=== PATIENT | male | born 1960 | race Caucasian/White ===

== ENCOUNTER 2024-11-06 22:30 | Inpatient (IN) | payer BC, SELFPAY ==
[2024-11-06 17:14] VITALS: BP 149/89
[2024-11-06 17:40] LABS: Hematocrit 38.3 % (39.0-52.0); Hemoglobin 12.6 g/dL (13.0-18.0); Mean Corp Hgb Conc. 32.9 g/dL (33.0-37.0); Mean Corpuscular Volume 85.1 fL (80.0-94.0); Nucleated Red Blood Cells % 0 % (-); Platelet Count 416 10^3/uL (130-400); Red Cell Dist. Width 13.4 % (11.5-14.5)
[2024-11-06 18:02] LABS: ALT (SGPT) 118 U/L (0-50); AST (SGOT) 39 U/L (17-59); Albumin 3.9 g/dl (3.5-5.0); Alkaline Phosphatase 329 U/L (38-126); Blood Urea Nitrogen 13 mg/dl (9-20); Calcium 9.6 mg/dl (8.4-10.2); Carbon Dioxide 24 mmol/L (22-30); Glucose 117 mg/dl (70-99); Total Protein 7.4 g/dl (6.3-8.2); eGFR > 60.00
[2024-11-06 18:17] LABS: Chloride 106 mmol/L (98-107); Potassium 4.4 mmol/L (3.5-5.1); Sodium 138 mmol/L (135-145)
[2024-11-06 19:47] VITALS: BP 143/87
[2024-11-06 20:00] VITALS: BP 157/92
--- NOTE | 2024-11-06 20:00 | ED.GENMED ---
History of Present Illness
General
Chief Complaint: Pneumonia Symptoms
Source: patient and spouse
Exam Limitations: none
Time Seen by Provider: 11/06/24 19:38
Nursing documentation reviewed up to this point in time: agreed with
History of Present Illness
History of Present Illness:
Patient states he was seen at 10 days ago. Diagnose with flu. He was called the following day and told he also had pneumonia. He was placed on [id number] bid, last dose is scheduled for tonight. He returned to on Monday because he
was not feeling any better. He was given rx for ceftin to take along with the doxycycline. He returned to today because he is still having fevers. He was then referred to ED. Reports JI, fatigue.
Past History
Past History
ED Past Medical History: HTN, Hypercholesterolemia and Hypothyroidism
Social History
Tobacco: Non-smoker
Alcohol: None
Drug: None
Review of Systems
Review of Systems
Allergies reviewed?: Yes
All Other Systems: ROS reviewed and negative except as documented in HPI and ROS
Constitutional: Reports fever and fatigue
EENT: Reports no symptoms
Respiratory: Reports cough and trouble breathing
Cardiac: Reports no symptoms
ABD/GI: Reports no symptoms
: Reports no symptoms
Musculoskeletal: Reports no symptoms
Skin: Reports no symptoms
Neurological: Reports weakness
Psychiatric: Reports no symptoms
Phy Exam
General Physical Exam
General Presentation: moderate distress
General age: appears stated age
General Skin: warm and dry
General Habitus: normal
General Mental: alert
Cardiovascular Exam
Cardiovascular Exam: regular rate/rhythm
Pulmonary Exam
Pulmonary Exam: decreased breath sounds
Musculoskeletal Exam
Musculoskeletal Exam: full ROM and neuro vasc intact
Skin Exam
Skin Exam: normal color, warm/dry and no rash
Psychiatric Exam
Psychiatric Exam: normal mood/affect
Course
Orders/Labs/Results
Orders:
Orders
11/06/24 17:32
Complete Blood Count/With Diff Urgent
Comprehensive Metabolic Panel Urgent
11/06/24 17:34
Blood Culture Urgent
DEMI Source: Blood/Venous
Specimen Description:
11/06/24 19:59
CR Chest - 2 Views Urgent
Comment:
Reason For Exam: SOB
11/06/24 20:04
Acetaminophen [Tylenol] 1,000 mg PO NOW STA
11/06/24 20:05
0.9% Sodium Chloride 1000 ml [Nss] 1,000 ml IV BOLUS
11/06/24 20:13
Lactic Acid Urgent
Blood Culture Urgent
DEMI Source: Blood/Venous
Specimen Description:
11/06/24 21:17
Cefepime HCl [Maxipime] 2,000 mg IV NOW STA
11/06/24 21:20
Cefepime HCl [Maxipime] 2,000 mg IV NOW STA
Vancomycin [Vancocin] 2,000 mg 0.9% Sodium Chloride 500 ml [Nss] 500 ml IV NOW
11/06/24 21:30
Sterile Water [Sterile Water For Injection] 10 ml .ROUTE .[facility]
Vancomycin [Vancocin] 2,000 mg 0.9% Sodium Chloride 500 ml [Nss] 500 ml IV NOW
11/06/24 22:04
Admit/Transfer Patient As Directed
Co-Sign Provider:
Level of Care: Inpatient admission
Assign to:: Telemetry
Physician / Group: Jose Maria Palmer
Diagnosis: sepsis, pneumonia, transaminitis
Reason for Telemetry: Arrhythmia
Date to Stop Telemetry: 11/09/24
Time to Stop Telemetry: 11:00
Reason for Hospitalization: sepsis, pneumonia, transaminitis
Expected length of stay greater than two midnights?: Yes
ELOS- Estimated Length of Stay in days: 3
I certify the patient meets the requirements for IP care: Yes
PRN Pain Medication Management As Directed
May give lesser potent ordered pain med per pt: Yes
preference::
Protocol:: Medication orders for pain may be administered in a
manner that supports deferring to patient preference
when the pt is:
- Requesting an ordered lesser potent pain medication.
Least to most potent pain medications are defined
as: acetaminophen < NSAID < tramadol < opioids
(morphine, oxycodone, hydromorphone).
- Requesting a lesser dose of the same medication IF
ORDERED.
- Requesting a less intrusive route of administration
if both routes are prescribed by the provider (PO <
IV).
11/06/24 22:05
Code Status As Directed
Resuscitation Status: Full Code
11/06/24 22:08
MRSA Screen Routine
DEMI Source: Nose
Specimen Description:
Vancomycin MRSA PCR Screen Routine
DEMI Source: N
Specimen Description:
11/07/24 00:20
0.9% Sodium Chloride 1000 ml [Nss] 1,000 ml IV 100 mls/hr
Acetaminophen [Tylenol] 650 mg PO Q4HPRN PRN
Cefepime HCl [Maxipime] 1,000 mg IV Q8H
11/07/24 00:20
Respiratory Culture/Gram Stain Urgent
DEMI Source: Sputum
Specimen Description:
Activity As Directed
Activity Level: Out of Bed-Early Mobility
Intake/ Output As Directed
Frequency: Per unit guidelines
Vital Signs As Directed
Frequency: Per unit guidelines
Weight As Directed
Frequency: Once
Comment: on admission
O2 Therapy [RESP] Routine
Titrate/Wean O2 to maintain O2 sat greater than (%): 93
Special Instructions: Wean as tolerated
Rx Incentive Spirometry [RESP] Routine
Frequency: q1h while awake
DX Deep Vein Thrombosis Video Routine
11/07/24 00:52
Legionella Urinary Antigen Routine
DEMI Source: Urine
Specimen Description:
Strep pneumoniae Antigen Routine
DEMI Source: Urine
Specimen Description:
11/07/24 Breakfast
Regular
At Your Request: Full Participation
Does patient need a safe tray?: No
Reason for opting out of Medical Equipment Repair Technician order writing: Provider Decision
11/07/24 07:36
Complete Blood Count/No Diff IN AM
Comprehensive Metabolic Panel IN AM
11/07/24 18:00
Enoxaparin Sodium [Lovenox] 40 mg SC QPM
11/09/24 11:00
DC Protocol for Telemetry ONCE
Abnormal Lab Results
11/06/24
17:32
WBC 14.6 H 10^3/uL
(4.8-10.8)
RBC 4.50 L 10^6/uL
(4.70-6.10)
Hgb 12.6 L g/dL
(13.0-18.0)
Hct 38.3 L %
(39.0-52.0)
MCHC 32.9 L g/dL
(33.0-37.0)
Plt Count 416 H 10^3/uL
(130-400)
Abs Immat Gran (auto) 0.1 H 10^3/uL
(0-0.05)
Absolute Neuts (auto) 11.6 H 10^3/uL
(1.4-6.5)
Absolute Monos (auto) 1.0 H 10^3/uL
(0.1-0.6)
Neutrophils % 79.3 H %
(42.2-75.2)
Lymphocytes % 12.3 L %
(20.5-51.1)
Glucose 117 H mg/dl
(70-99)
ALT 118 H U/L
(0-50)
Alkaline Phosphatase 329 H U/L
(38-126)
11/06/24 17:32
11/06/24 17:32
Vital Signs
Initial and Last Documented VS:
Initial Vital Signs
Temp Pulse Resp BP Pulse Ox
98.6 F 107 20 149/89 98
11/06/24 17:14 11/06/24 17:14 11/06/24 17:14 11/06/24 17:14 11/06/24 17:14
Last Documented Vital Signs
Temp Pulse Resp BP Pulse Ox
101.0 F H 101 26 150/86 93
11/07/24 17:04 11/07/24 15:01 11/07/24 15:01 11/07/24 15:01 11/07/24 15:01
*Radiology
Radiology exam reviewed: radiology read reviewed
*Pulse Oximetry
SaO2: 98
Oxygen Mode of Delivery: Room air
Patient hypoxic: no
*Critical Care Note
Total Time (30-74mins, 75-104mins- exclusive of procedures): Not Applicable
Update Note
Update Note:
Patient to ED wtih complaint of persistent fevers. Diagnosed with flu and pnuemonia 10 days ago. treated with tamiflu and placed on doxycycline without improvement. Ceftin added4 days ago due to persistent fevers and repeat xray without
improvement. Today reports increasing SOB, fevers >101. Labs reviewed. WBC 15 with left shift. Lactic normal. Temp of 102 in ED. CXR atelectasis vs pneumonia. Case discussed with Dr. Roe. Will place on Vancomycin and cefepime, admit to
hospitalist for pneumonia, persistent fevers, JI.
ED Attending Note
-
Portions of this chart may have been created with voice recognition software.� Occasional wrong word or��sound alike� substitutions may have occurred due to the inherent limitations of voice recognition software.
Discharge Plan
Departure
Patient Disposition: Admit
Date of Disposition: 11/06/24
Time of Disposition: 21:22
Presentation/result/management discussed w/ accepting MD/DO: Hospitalist
Patient with high blood pressure during this ER visit?: No
Condition: Fair
Covid-19: Not Applicable
Discharge Problem:
Pneumonia, Fever and chills, JI (dyspnea on exertion)
Interventions
Interventions:
*Risk Screen - Suicide Last Done: 11/07/24 00:23
*General Assessment Last Done: 11/06/24 17:14
*Neglect/Abuse Screening Last Done: 11/06/24 17:14
*ED- Fall Risk Assessment Last Done: 11/06/24 17:14
*ED COVID-19 Vaccine History Last Done: 11/06/24 17:14
*Nursing Disposition Last Done: 11/07/24 00:10
ED- Cardiac Assessment Last Done: 11/06/24 21:00
ED- Pulmonary Assessment Last Done: 11/06/24 21:00
Discharge Date and Time
Discharge Date/Time: 11/07/24 00:10
[2024-11-06 20:05] VITALS: BMI 32.6
[2024-11-06] MEDS: TYLENOL 1000 MG PO (20:14)
[2024-11-06] MEDS: NSS 1000 IV (20:18)
[2024-11-06] MEDS: MAXIPIME 2000 MG IV (21:32)
--- NOTE | 2024-11-06 21:40 | HPS.HSE ---
Family Physician
<DENNIS Romeo - Last Filed: 11/07/24 14:04>
-
Family Physician: Yocasta Santana, DO
Chief Complaint
<DENNIS Romeo - Last Filed: 11/07/24 14:04>
-
persistent fevers
History of Present Illness
Patient is a 63-year-old male with past medical history significant for hypertension, hypercholesterolemia and hypothyroidism who presented to [facility] ED for evaluation of persistent fevers and difficulty breathing. Patient reports that he has had
persistent fevers for last 10 days associated with difficulty breathing. He states he went to [facility] x3 and was treated for pneumonia with 2 antibiotics (doxycycline and Ceftin) and has not improved. Urgent care recommended ED
visit for evaluation and treatment when he returned today without improvement. Patient denies cough, chest pain, nausea, vomiting or changes with bowel or bladder.
Medical History
<DENNIS Romeo - Last Filed: 11/07/24 14:04>
Past Medical History
Past Medical History: Reports Other
Additional Past Medical History:
hypertension
hypercholesterolemia
hypothyroidism
Hx Prostate Cancer
Past Surgical History: Reports Other
Additional Past Surgical History:
prostatectomy 04/2024
Social History
Tobacco: Non-smoker
Alcohol: Occasional
Drug: None
Personal:
Living: With Family
Employment: Employed
Family History
Family History: Not pertinent
Allergies / Home Medications
Allergies reflects when Allergies were last updated in [employer].
Home Medications with original date entered in [employer]
Allergy/Medication List:
Allergies
Allergy/AdvReac Type Severity Reaction Status Date / Time
No Known Allergies Allergy Verified 11/06/24 21:29
Home Medications
acetaminophen 500 mg tablet (Tylenol Extra Strength) 1,000 mg PO DAILYPRN PRN mild pain/fever 11/06/24
amlodipine 5 mg tablet 5 mg PO HS 11/06/24
cefuroxime axetil 250 mg tablet 250 mg PO BID 11/06/24
doxycycline hyclate 100 mg capsule 100 mg PO BID 11/06/24
ibuprofen 200 mg tablet 600 mg PO Q6HPRN PRN mild pain/fever 11/06/24
levothyroxine 50 mcg tablet 50 mcg PO DAILY 11/06/24
lisinopril 10 mg tablet 10 mg PO HS 11/06/24
tadalafil 5 mg tablet 5 mg PO DAILY 11/06/24
<DENNIS Seth - Last Filed: 11/07/24 01:11>
Past Medical History
Past Medical History: Reports Hypercholesterolemia
Review of Systems
<DENNIS Romeo - Last Filed: 11/07/24 14:04>
-
History Source: Patient
Constitutional: Reports Fever, Fatigue and Chills
Respiratory: Reports Trouble Breathing (dyspnea )
Physical Exam
<DENNIS Romeo - Last Filed: 11/07/24 14:04>
Vital Signs
Vital Signs
Temp Pulse Resp BP Pulse Ox
100 F 107 20 157/92 96
11/06/24 21:26 11/06/24 17:14 11/06/24 17:14 11/06/24 20:00 11/06/24 20:26
Physical Exam
General: Well Developed, Well Nourished and No Apparent Distress
HEENT: NormoCephalic, Moist mucous membranes and Atraumatic
Respiratory: Clear and Non Labored Respirations
Cardiac: S1/S2 and Regular Rhythm
GI: Soft, Non Tender, Non Distended and Normal Bowel Sounds
Rectal: Deferred by Provider
Genito-urinary: Deferred by me
Musculoskeletal: No Clubbing, No Cyanosis and No Edema
Skin: Warm and IV/Catheter Site
Neuro: Awake, AO x 3 and Nonfocal/grossly intact
Psych: Calm
Laboratory Results
<DENNIS Romeo - Last Filed: 11/07/24 14:04>
-
11/06/24 17:32
11/06/24 17:32
Laboratory Results
Lactic Acid 1.4 mmol/L (0.7-2.0) 11/06/24 20:13
Total Bilirubin 1.0 mg/dl (0.2-1.3) 11/06/24 17:32
AST 39 U/L (17-59) 11/06/24 17:32
ALT 118 U/L (0-50) H 11/06/24 17:32
Alkaline Phosphatase 329 U/L (38-126) H 11/06/24 17:32
Data Reviewed
<DENNIS Romeo - Last Filed: 11/07/24 14:04>
-
Diagnostic Radiology: Report Reviewed by me (CXR: Mild bibasilar opacities which are favored to represent atelectasis, however pneumonia cannot be excluded.)
Lab Data: Labs Reviewed by me (WBC 14.6, Neut 79.3, lactic 1.4, ALT 118, Alk Phos 329)
Impression/Plan
<DENNIS Romeo - Last Filed: 11/07/24 14:04>
-
IMPRESSION/PLAN:
#sepsis likely 2/2 pneumonia
WBC 14.6, Neut 79.3, lactic 1.4
CXR: Mild bibasilar opacities which are favored to represent atelectasis, however pneumonia cannot be excluded.
Blood Cx: pending
- Admit to telemetry
- MRSA screen pending
- IV Vanco and Cefepime for now
- IV NSS 100cc/hr
- supportive care
#transaminitis
ALT 118, Alk Phos 329
- trend LFTs
#hypertension
#hypercholesterolemia
#hypothyroidism
#Hx Prostate Cancer
*med rec not completed at time of admission*
Code status: full code
DVT Prophylaxis: lovenox sq
--- NOTE | 2024-11-06 21:54 | W.PN.UPDATE ---
Update Note
Progress Note Update
This note serves as an addendum to the H&P by intercell connector placer WILLY Loreta Proctor
HPI
63M non smoker HX HTN, Hypothyroid seen at ER:
- about 10 days ago OP Dx of flu and POS CXR for PNA following day, treating with PO doxycycline 100mg bid
- last dose of PO Doxy is scheduled for tonight.
- He returned to on Monday because he was not feeling any better., thus was given rx for ceftin to take along with the doxycycline.
- He returned to today because he is still having fevers.
- He was then referred to ED.
ROS:
Reports JI, fatigue
Vital Signs
Temp Pulse Resp BP Pulse Ox
100 F 107 20 157/92 96
11/06/24 21:26 11/06/24 17:14 11/06/24 17:14 11/06/24 20:00 11/06/24 20:26
PE
Gen: moderate distress, non toxic looking
Lungs: symmetric AE but decresed AE
Cor: RRR , no mumur
Abdomen: soft benign exam
[place] TIER: AAO3 , grossly normal
MS: no edema
Psych: normal mood/affect
Relevant data
Labs
11/06/24
17:32
WBC 14.6 H
Hgb 12.6 L
Plt Count 416 H
Creatinine 0.8
eGFR > 60.00
AST 39
ALT 118 H
Alkaline Phosphatase 329 H
BCx sent
CXR
Mild bibasilar opacities which are favored to represent atelectasis, however pneumonia cannot be excluded.
ASSESSMENT & PLAN
Pending Rx reconciliation
Sepsis due to PNA pw increasing SOB, fevers >102 in ED
Presumed PNA with secondary bacterial infection
- failed OP ABx( PO Doxycycline for 10 days and PO Ceftin last 4 days overlapped with Doxy )
- WBC 15 with left shift. Lactic normal.
- CXR atelectasis vs. bibasilar PNA
- BCx sent
- MRSA screen
- IV NS
- stop PO Doxy and Ceftin
- First dose of IV Vancomycin and cefepime at ER
- cont IV vanco and Zosyn for now pending MRSA screen
- Observe T and WCC
Elevated ALT & AKP: DDX- AILI due to sepsis
- IV NS and Empiric broad spec ABx
- Trend LFts
DVT Px: LMWH
Full code
IP TLM
[2024-11-06] MEDS: VANCOCIN 540 MG IV (22:07)
[2024-11-07] VITALS (7 sets, daily range): BP systolic 127–150; BP diastolic 74–90; BMI 32.4
[2024-11-07] MEDS: NSS 1000 IV ×2 (00:44→12:08)
[2024-11-07] MEDS: NORVASC 5 MG PO ×2 (01:28→21:45)
[2024-11-07] MEDS: ZESTRIL 10 MG PO ×2 (01:29→21:45)
[2024-11-07] MEDS: TYLENOL 650 MG PO ×3 (03:05→23:25)
[2024-11-07] MEDS: STERILE WATER FOR INJECTION 10 ML IV ×3 (05:06→16:49)
[2024-11-07] MEDS: SYNTHROID 50 MCG PO (05:07)
[2024-11-07] MEDS: MAXIPIME 1000 MG IV ×3 (05:07→16:49)
[2024-11-07] MEDS: CALDOLOR 156 MG IV ×2 (05:42→16:56)
[2024-11-07 07:59] LABS: Hematocrit 31.9 % (39.0-52.0); Hemoglobin 10.7 g/dL (13.0-18.0); Mean Corp Hgb Conc. 33.5 g/dL (33.0-37.0); Mean Corpuscular Volume 83.1 fL (80.0-94.0); Platelet Count 336 10^3/uL (130-400); Red Cell Dist. Width 13.3 % (11.5-14.5)
[2024-11-07 08:20] LABS: ALT (SGPT) 76 U/L (0-50); AST (SGOT) 26 U/L (17-59); Albumin 3.2 g/dl (3.5-5.0); Alkaline Phosphatase 272 U/L (38-126); Blood Urea Nitrogen 10 mg/dl (9-20); Calcium 8.5 mg/dl (8.4-10.2); Carbon Dioxide 20 mmol/L (22-30); Chloride 109 mmol/L (98-107); Estimated Creatinine Clearance 116 ml/min; Glucose 127 mg/dl (70-99); Potassium 4.1 mmol/L (3.5-5.1); Sodium 136 mmol/L (135-145); Total Protein 6.2 g/dl (6.3-8.2); eGFR > 60.00
--- NOTE | 2024-11-07 09:05 | PHA.VAN.IN ---
Assessment
- Assessment
Renal Function: Appears similar to baseline
Concomitant Antimicrobials: cefepime
AUC Dosing Plan
- Dosing Variables
Dosing Weight (kg): 102.5
Dosing CrCl (ml/min): 116
Vd coefficient (L/kg): 0.7
- Empiric Dosing
Initial / Loading Dose: 2000mg - 11/06 22:07
Maintenance Regimen: Vanc 1500mg Q12H - give 1g now and start at 1800
Estimated AUC (mcg*h/mL): 447
Estimated Peak (mcg*h/mL): 29.8
Estimated Trough (mcg/ml): 10.4
Estimated Half Life (H): 6.9
- Monitoring
No levels ordered at this time: consider levels in next few days
MRSA Screen: Ordered per protocol
Pharmacokinetics Vancomycin I
- -
Patient Age: 63
Patient Sex: Male
Vancomycin Day #: 1
Indication: Pulmonary/Respiratory
Requesting Provider: Bryan Proctor
Pertinent Antimicrobial Allergies:
NKDA
Height / Weight:
Height 5 ft 10 in
Actual Weight 102.569 kg
Pertinent Past Medical History: BMI ~32
- Vital Signs / Lab Results
Temp Pulse Resp BP Pulse Ox
98.1 F 102 26 127/74 94
11/07/24 07:30 11/07/24 07:30 11/07/24 07:30 11/07/24 07:30 11/07/24 07:30
Lab Results - Hematology
11/06/24 11/07/24
17:32 07:36
WBC 14.6 H 14.1 H
Lab Results - Chemistry
11/06/24 11/07/24
17:32 07:36
BUN 13 10
Creatinine 0.8 0.8
Estimated Creat Clear 116
Albumin 3.9 3.2 L
11/06/24
20:13
Lactic Acid 1.4
Microbiology Results
11/07/24 00:52 Legionella Urinary Antigen - Final
Urine Negative for Legionella pneumophila Serogroup 1 antigen.
A negative result does not rule out the possiblity of
Legionella infection due to other serogroups or species of
Legionella. Clinical correlation is recommended.
11/07/24 00:52 Streptococcus pneumoniae Antigen (M - Final
Urine Negative for Streptococcus pneumoniae antigen.
A negative result does not exclude infection with
Streptococcus pneumoniae. Clinical correlation is
recommended.
[2024-11-07] MEDS: VANCOCIN 200 IV (09:39)
--- NOTE | 2024-11-07 10:37 | W.PN.HOSP.TC ---
Addendum entered and electronically signed by Neda Mcmillan MD 11/07/24 15:10:
I saw and evaluated the patient independently. I reviewed the resident�s note and agree with findings and plan as documented by Dr. May.
GENERAL: well developed, well nourished, male in no apparent distress--sleepy
HEENT: NC/AT--no O2 requirements
HEART: regular rate and rhythm, +S1, +S2
LUNGS : crackles left base
ABDOM: soft, nontender, nondistended, + bowel sounds
EXT: no cyanosis, clubbing, or edema
NEUROLOGIC: grossly intact
SIRS with febrile illness--source not immediately apparent--possible PNA --failed outpt doxy and Tamiflu? vs Ceftin?--consult ID--await cultures--cont cefepime--check Covid/flu/resp panel
Elevated ALT & ALKP--unclear cause--follow
essential HTN--cont amlodipine, lisinopril as able
hypothyroid--cont levothyroxine
DVT Proph--SC heparin
CODE STATUS--Full code
Original Note:
Today's Communication/Plan
-
Continue IV fluids
Continue IV antibiotics
Follow-up blood culture
Influenza PCR
COVID PCR
Assessment / Plan
Assessment / Plan
Mr. Sung is a 63-year-old man with a past medical history of hypertension, hyperlipidemia, hypothyroidism, prostate cancer who to ED wt complaint of persistent fevers. He was diagnosed with flu and pnuemonia 10 days ago. treated with tamiflu and
placed on doxycycline without improvement. Ceftin was added 4 days ago due to persistent fevers and repeat xray without improvement. Today reports increasing SOB, fevers >101. Labs reviewed. WBC 15 with left shift. Lactic normal at 1.4. Temp of
102 in ED. CXR showed atelectasis vs pneumonia. Patient was started on Vancomycin and cefepime, admit to hospitalist for pneumonia, persistent fevers, JI. In the hospital he received IV fluid hydration and infectious disease was consulted. A
respiratory pathogen panel was sent.
#Sepsis due to PNA
#PNA with secondary bacterial infection
- failed OP ABx Doxycycline, Ceftin
- WBC 15 with left shift. Lactic normal, pw increasing SOB, fevers >102 in ED
- CXR atelectasis vs. bibasilar PNA
- BCx sent
- MRSA screen
- IV NSS
- cont IV vanco and Zosyn for now pending MRSA screen
- Observe T and WCC
- COVID antigen influenza PCR
#Elevated ALT & ALKP:
2/2 to sepsis
- IV NS
- Trend LFts
DVT Px:
Subcu heparin
CODE STATUS
Full code
Anticipated Discharge: 24 - 48 hours
Subjective/Interval History
-
Patient was sitting in bed. He reports feeling more comfortable than the past couple days, improving shortness of breath, without fevers. He reported no sick contacts or recent travel, and had no other symptoms such as nausea vomiting or diarrhea.
Date of Service: November 07, 2024
Objective Data
-
Labs:
Laboratory Results
11/07/24
07:36
WBC 14.1 H
Hgb 10.7 L
Hct 31.9 L
Plt Count 336
Sodium 136
Potassium 4.1
Chloride 109 H
Carbon Dioxide 20 L
BUN 10
Creatinine 0.8
Glucose 127 H
Calcium 8.5
Total Bilirubin 1.0
AST 26
ALT 76 H
Alkaline Phosphatase 272 H
Vital Signs:
Vital Signs
Temp Pulse Resp BP Pulse Ox
98.1 F 102 26 127/74 94
11/07/24 07:30 11/07/24 07:30 11/07/24 07:30 11/07/24 07:30 11/07/24 07:30
I&O
11/06/24 11/07/24 11/08/24
06:59 06:59 06:59
Output Total 275 / 275
Balance -275 / -275
Review of Systems
-
History Source: Patient
Constitutional: Reports Fever; Denies Fatigue
EENT: Reports No Symptoms Reported; Denies Sore Throat or Runny Nose
Respiratory: Reports Trouble Breathing
Cardiac: Denies Chest Pain or Palpitations
Abdomen/GI: Denies Abdominal Pain, Nausea, Vomiting or Diarrhea
Genitourinary: Reports No Symptoms; Denies Dysuria or Frequency
Musculoskeletal: Denies No Symptoms
Skin: Reports No Symptoms
Neuro: Reports No Symptoms; Denies Dizzy or Headache
Physical Exam
-
General: Well Developed, Well Nourished and No Apparent Distress
HEENT: Normocephalic and Atraumatic
Respiratory: Rhonchi ( middle to lower left lung combs), Crackles (middle to lower left lung combs) and Non Labored Respirations; Negative Wheezes
Cardiac: Regular Rhythm, S1/S2 and Tachycardic; Negative Murmur or Rub
GI: Soft, Nontender, Nondistended and Normal Bowel Sounds
Musculoskeletal: No Clubbing, No Cyanosis and No Edema
Skin: Warm and Dry; Negative Rash
Neuro: Awake, Alert and Oriented
Psych: Calm
--- NOTE | 2024-11-07 11:03 | CON.ID ---
Consultation
-
Date/Time Consultation Requested: November 07, 2024 0934
Date/Time Consultation Performed: November 07 2024 1100
Requesting Provider: Dr. Leonela May
Performing Provider: Dr. Bee Chambers
Reason for Consultation: SOB and fevers
Chief Complaint / Past History
Chief Complaint
Fevers and weakness
History of Present Illness
63-year-old male with history of hypothyroidism, hypertension who presented to the hospital November 06 due to persistent fevers. His symptoms started approximately 11 days ago when he developed fevers and chills with mild headache, body aches,
rhinorrhea, minimal cough. He went to urgent care and was diagnosed with influenza B. He was prescribed oseltamivir. The next day he received a call that his chest x-ray showed pneumonia and therefore he was given doxycycline to complete 10 days.
In the meantime patient's condition did not improve. Continue to have persistent fever. He was getting more fatigued and weak. He developed shortness of breath with activity. He went back to urgent care on November 03. Ceftin was added to
the doxycycline. Symptoms did not improve and therefore he came to the ER. In the ER temperature one 1.5, white count 14.6. Chest x-ray showed bibasilar opacities due to atelectasis. He was started on vancomycin and cefepime. Patient denies
sinus congestion or pain. No sore throat. No chest pain. No nausea or vomiting or abdominal pain or diarrhea. No urine symptoms, no flank pain. No specific joint pains. Continues to have profound fatigue and myalgias. No recent rash. No ill
contacts. 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 He also has a bird for 2 years. The bird stays in the cage. He does not clean the bird cage. No known
tick exposure.
Past History
Additional Past Medical History:
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
Hypertension
hx prostate ca s/p prostatectomy
Hx testicular ca s/p right orchiectomy
Hx inguinal hernia repari
Allergy History:
No Known Allergies Allergy (Verified 11/06/24 21:29)
Medications Reviewed: Yes
Current Antibiotics:
Vancomycin
Cefepime
Social History
Tobacco: Non-Smoker
Alcohol: None
Drug: None
Personal:
Living: With Family
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
Family History
Family History: Not Pertinent
Review of Systems
Review of Systems
General: Fever, Chills and Change in Appetite
HEENT: Headache; Negative Stiff Neck, Sinus Problems or Pharyngitis
Cardiovascular: Dyspnea; Negative Chest Pain
Respiratory: Negative Cough or Sputum Production
Gasteroenterology: Negative Nausea, Vomiting or Diarrhea
Genital / Urological: Negative Dysuria or Flank Pain
Endocrine: Weakness and Fatigue
Skin / Hair / Nails: Negative Rash
Neurological: Dizziness
All systems: All other systems were reviewed and were negative
Vital Signs
Temp Pulse Resp BP Pulse Ox
98.1 F 102 26 127/74 94
11/07/24 07:30 11/07/24 07:30 11/07/24 07:30 11/07/24 07:30 11/07/24 07:30
Selected Entries
11/06/24
20:05 11/07/24
03:45 11/07/24
05:00
Temp 101.5 F H 100.7 F H 100.9 F H
Physical Exam
Physical Exam
Constitutional: Non-toxic
Head: Other (No frontal or maxillary sinus tenderness)
Eyes: No Conjunctival Hemorrhage and Sclera Anicteric
Pharynx: Benign
Oral: No Ulcers
Cardiovascular: Regular Rate and S1/S2
Pulmonary: Coarse (Bibasilar)
Gastrointestinal: Soft, Non Tender, Non Distended and Normal Bowel Sounds
Extremities: Negative Edema
Musculoskeletal: Negative Joint Swelling, Joint Effusion or Spinal Tenderness
Neurological: AO x 3
Lab / Diagnostic Study Results
11/07/24 07:36
11/07/24 07:36
Abs Immat Gran (auto) 0.1 10^3/uL (0-0.05) H 11/06/24 17:32
Absolute Neuts (auto) 11.6 10^3/uL (1.4-6.5) H 11/06/24 17:32
Absolute Lymphs (auto) 1.8 10^3/uL (1.2-3.4) 11/06/24 17:32
Absolute Monos (auto) 1.0 10^3/uL (0.1-0.6) H 11/06/24 17:32
Absolute Basos (auto) 0.0 10^3/uL (0-0.2) 11/06/24 17:32
Immature Gran % 0.5 % (0-0.5) 11/06/24 17:32
Neutrophils % 79.3 % (42.2-75.2) H 11/06/24 17:32
Lymphocytes % 12.3 % (20.5-51.1) L 11/06/24 17:32
Monocytes % 7.1 % (1.7-9.3) 11/06/24 17:32
Eosinophils % 0.5 % (0-6) 11/06/24 17:32
Basophils % 0.3 % (0-2) 11/06/24 17:32
Lactic Acid 1.4 mmol/L (0.7-2.0) 11/06/24 20:13
Microbiology Results
Micro:
11/06/24 22:08 Nasal Screen MRSA (PCR) - Pending
Nose
11/07/24 00:52 Legionella Urinary Antigen - Final
Urine Negative for Legionella pneumophila Serogroup 1 antigen.
A negative result does not rule out the possiblity of
Legionella infection due to other serogroups or species of
Legionella. Clinical correlation is recommended.
11/07/24 00:52 Streptococcus pneumoniae Antigen (M - Final
Urine Negative for Streptococcus pneumoniae antigen.
A negative result does not exclude infection with
Streptococcus pneumoniae. Clinical correlation is
recommended.
11/06/24 20:13 Blood Culture - Pending
Blood/Venous
11/06/24 17:34 Blood Culture - Pending
Blood/Venous
11/06/24 CXR: Mild bibasilar opacities which are favored to represent atelectasis, however pneumonia cannot be excluded.
Assessment / Plan
# Febrile illness
# Leukocytosis
# Anemia
#Elevated ALT
- Symptoms did not respond to 10 days doxycycline nor 5 days of oseltamivir.
- CXR: atelectasis
- SARS neg
-Blood cx's pending
- Check blood smear for Babesiosis.
- DC Vancomycin.
-Can continue cefepime for now pending blood cx.
- Trend temps and CBC
[2024-11-07 11:41] LABS: COVID-19 Antigen Negative (Negative)
--- NOTE | 2024-11-07 15:09 | CM ---
Patient seen at bedside with physician on . Patient stated that he was sleepy. Patient also stated that he lives with his in a 2 story home. Patient has no DME at home and his PCP is Dr. Santana. Patient uses the [facility] on in
[place]. Patient plan is to return to his home with no needs. Patient now on Cefepime awaiting ID recommendations; watch for possible IV antibiotic needs. Patient has been independent prior to acmission. CM will continue to follow for discharge
planning needs.
Plan; home with no needs vs watch for IV antibiotics
[2024-11-07] MEDS: LOVENOX 40 MG SC (16:51)
[2024-11-08] MEDS: STERILE WATER FOR INJECTION 10 ML IV ×5 (00:11→23:17)
[2024-11-08] MEDS: MAXIPIME 1000 MG IV ×5 (00:11→23:17)
[2024-11-08] MEDS: NSS 1000 IV (00:19)
[2024-11-08 03:29] VITALS: BP 130/81
[2024-11-08] MEDS: TYLENOL 650 MG PO ×2 (03:45→21:31)
[2024-11-08] MEDS: SYNTHROID 50 MCG PO (06:11)
[2024-11-08 07:00] VITALS: BP 135/78
[2024-11-08 07:39] LABS: Hematocrit 31.4 % (39.0-52.0); Hemoglobin 10.6 g/dL (13.0-18.0); Mean Corp Hgb Conc. 33.8 g/dL (33.0-37.0); Mean Corpuscular Volume 83.5 fL (80.0-94.0); Nucleated Red Blood Cells % 0 % (-); Platelet Count 318 10^3/uL (130-400); Red Cell Dist. Width 13.2 % (11.5-14.5)
[2024-11-08 08:07] LABS: ALT (SGPT) 71 U/L (0-50); AST (SGOT) 27 U/L (17-59); Albumin 3.0 g/dl (3.5-5.0); Alkaline Phosphatase 261 U/L (38-126); Blood Urea Nitrogen 11 mg/dl (9-20); Calcium 8.4 mg/dl (8.4-10.2); Carbon Dioxide 23 mmol/L (22-30); Chloride 109 mmol/L (98-107); Estimated Creatinine Clearance 116 ml/min; Glucose 113 mg/dl (70-99); Potassium 4.0 mmol/L (3.5-5.1); Sodium 135 mmol/L (135-145); Total Protein 5.8 g/dl (6.3-8.2); eGFR > 60.00
[2024-11-08] MEDS: NSS IV (09:20)
[2024-11-08 11:00] VITALS: BP 122/82
[2024-11-08] MEDS: OMNIPAQUE 50 ML PO (12:09)
--- NOTE | 2024-11-08 13:06 | W.PN.ID1 ---
Date of Service
Date of Service: November 08, 2024
Today's Communication
TTE
CT c/a/p
Assessment / Plan
# Febrile illness, unclear etiology
# Leukocytosis
# Anemia
#Elevated ALT
- Symptoms did not respond to 10 days doxycycline nor 5 days of oseltamivir (outpatient)
- CXR: atelectasis
- SARS/Flu neg
- Parasite smear x 2 negative
-Blood cx's neg to date.
- Ordered TTE
- Recommend CT C/A/P
- Continue empiric cefepime for now.
- Trend temps and CBC
Chief Complaint
-: Fever
Subjective / Review of Systems
Complains of fatigue. Minimal cough.
Vital Signs / Physical Exam
Vital Signs
Vital Signs
Temp Pulse Resp BP Pulse Ox
100.3 F 110 18 122/82 92
11/08/24 11:00 11/08/24 11:00 11/08/24 11:00 11/08/24 11:00 11/08/24 11:00
Selected Entries
11/07/24
15:01 11/07/24
17:04
Temp 102.3 F H 101.0 F H
Physical Exam
Constitutional: No Acute Distress
Eyes: No Conjunctival Hemorrhage and Sclera Anicteric
Cardiovascular: S1/S2 and Other (tachycardic)
Pulmonary: Coarse (bibase)
Gastrointestinal: Soft, Non Tender, Non Distended and Normal Bowel Sounds
Genito-Urinary: Negative CVA Tenderness
Extremities: Negative Edema
Musculoskeletal: Negative Spinal Tenderness
Skin: Negative Rash
Neurological: AO x 3
Objective Data
Lab Data
Lab Results
11/08/24 06:33
11/08/24 06:33
Estimated Creat Clear 116 ml/min 11/08/24 06:33
Lactic Acid 1.4 mmol/L (0.7-2.0) 11/06/24 20:13
Total Bilirubin 0.8 mg/dl (0.2-1.3) 11/08/24 06:33
AST 27 U/L (17-59) 11/08/24 06:33
ALT 71 U/L (0-50) H 11/08/24 06:33
Alkaline Phosphatase 261 U/L (38-126) H 11/08/24 06:33
Most recent labs reviewed.
Micro Results:
11/08/24 06:33 Blood Parasites Smear - Final
Blood/Venous
11/06/24 22:08 MRSA Screen - Final
Nose No Methicillin Resistant Staphylococcus aureus isolated.
11/06/24 20:13 Blood Culture - Preliminary
Blood/Venous No Growth in 24 hours- Final report to follow
11/06/24 17:34 Blood Culture - Preliminary
Blood/Venous No Growth in 24 hours- Final report to follow
11/06/24 22:08 Nasal Screen MRSA (PCR) - Final
Nose
11/07/24 12:23 Blood Parasites Smear - Final
Blood/Venous
11/07/24 11:11 Influenza Types A & B (SHANEL) - Final
Nasal Swab Negative for Influenza A & B, NAAT
Negative results must be combined with clinical observations
and patient history.
Nucleic Acid Amplification test (NAAT)performed on the
Clone platform.
11/07/24 00:52 Legionella Urinary Antigen - Final
Urine Negative for Legionella pneumophila Serogroup 1 antigen.
A negative result does not rule out the possiblity of
Legionella infection due to other serogroups or species of
Legionella. Clinical correlation is recommended.
11/07/24 00:52 Streptococcus pneumoniae Antigen (M - Final
Urine Negative for Streptococcus pneumoniae antigen.
A negative result does not exclude infection with
Streptococcus pneumoniae. Clinical correlation is
recommended.
11/06/24 CXR: Mild bibasilar opacities which are favored to represent atelectasis, however pneumonia cannot be excluded.
Care Review
Plan reviewed with: Physician (Dr. Mcmillan and team)
--- NOTE | 2024-11-08 13:37 | W.PN.HOSP.TC ---
Addendum entered and electronically signed by Neda Mcmillan MD 11/08/24 16:32:
I saw and evaluated the patient independently. I reviewed the resident�s note and agree with findings and plan as documented by Dr. May.
GENERAL: well developed, well nourished, male in no apparent distress--sleepy/fatigue
HEENT: NC/AT--no O2 requirements
HEART: regular rate and rhythm, +S1, +S2
LUNGS: clear to auscultation bilaterally
ABDOM: soft, nontender, nondistended, + bowel sounds
EXT: no cyanosis, clubbing, or edema
NEUROLOGIC: grossly intact
fever of unknown origin now clearly sepsis from CT scan findings--rim-enhancing fluid collection in the anterior right psoas muscle, Inferiorly this abuts a multiloculated rim-enhancing fluid collection in the right external iliac chain region,
probably abscess formation particularly in the psoas muscle-- Necrotic lymphadenopathy for the findings about the external iliac chain are more likely--apprec ID-- cultures negative to date--cont cefepime--Covid/flu negative--consult surgery and IR
to see if drainable
Elevated ALT & ALKP--related to CT findings?--follow
essential HTN--cont amlodipine, lisinopril as able
hypothyroid--cont levothyroxine
DVT Proph--SC heparin
CODE STATUS--Full code
Original Note:
Today's Communication/Plan
-
Appreciate ID recs
CT chest abdomen pelvis
Echo ordered
Fever of unknown origin workup started
Assessment / Plan
Assessment / Plan
Mr. Sung is a 63-year-old man with a past medical history of hypertension, hyperlipidemia, hypothyroidism, prostate cancer who to ED [facility] complaint of persistent fevers. He was diagnosed with flu and pnuemonia 10 days ago. treated with tamiflu and
placed on doxycycline without improvement. Ceftin was added 4 days ago due to persistent fevers and repeat xray without improvement. Today reports increasing SOB, fevers >101. Labs reviewed. WBC 15 with left shift. Lactic normal at 1.4. Temp of
102 in ED. CXR showed atelectasis vs pneumonia. Patient was started on Vancomycin and cefepime, admit to hospitalist for pneumonia, persistent fevers, JI. In the hospital he received IV fluid hydration and infectious disease was consulted. A
respiratory pathogen panel was sent.
#Sepsis due to PNA
#PNA with secondary bacterial infection
# Fever of unknown origin
Patient not improving on IV antibiotics
Hx of prostate cancer
Hx of positive FIT test
- failed OP ABx Doxycycline, Ceftin
- WBC 15 with left shift. Lactic normal, pw increasing SOB, fevers >102 in ED
- CXR atelectasis vs. bibasilar PNA
- BCx pending
-Patient transition to IV cefepime
- COVID negative influenza negative
- ID consult, appreciate recs
- CT chest abdomen pelvis
- echo
- Fever of unknown origin workup
-Ferritin
- ESR CRP procalcitonin
- TREMAYNE ANCA
- RF
- B12, folate
- PSA
#Elevated ALT & ALKP:
2/2 to sepsis
- IV NS
- Trend LFts
DVT Px:
Subcu heparin
CODE STATUS
Full code
Anticipated Discharge: > 48 hours
Subjective/Interval History
-
Patient was seen at bedside today, he appears more fatigued than yesterday. He reports feeling more fatigued and breaking out in fevers. He has no localized pain anywhere. He told me that before the hospitalization he had a fit test which was
positive and was supposed to do a colonoscopy but was not able to follow-up. Patient also reported having 2 UTIs after prostate cancer resection. Date of Service: November 08, 2024
Objective Data
-
Labs:
Laboratory Results
11/08/24
06:33
WBC 12.4 H
Hgb 10.6 L
Hct 31.4 L
Plt Count 318
Sodium 135
Potassium 4.0
Chloride 109 H
Carbon Dioxide 23
BUN 11
Creatinine 0.8
Glucose 113 H
Calcium 8.4
Total Bilirubin 0.8
AST 27
ALT 71 H
Alkaline Phosphatase 261 H
Vital Signs:
Vital Signs
Temp Pulse Resp BP Pulse Ox
100.3 F 110 18 122/82 92
11/08/24 11:00 11/08/24 11:00 11/08/24 11:00 11/08/24 11:00 11/08/24 11:00
I&O
11/07/24 11/08/24 11/09/24
06:59 06:59 06:59
Intake Total 480 / 480
Output Total 275 / 275 850 / 850
Balance -275 / -275 -370 / -370
Review of Systems
-
History Source: Patient
All other systems: Reviewed and negative
Constitutional: Reports Fever and Fatigue
EENT: Denies Sore Throat or Runny Nose
Respiratory: Reports No Symptoms; Denies Cough, Trouble Breathing or Wheezing
Cardiac: Reports No Symptoms; Denies Chest Pain, Diaphoresis or Palpitations
Abdomen/GI: Reports No Symptoms; Denies Abdominal Pain, Nausea or Vomiting
Genitourinary: Reports No Symptoms; Denies Dysuria
Musculoskeletal: Reports No Symptoms
Skin: Reports No Symptoms; Denies Itching or Rash
Neuro: Reports No Symptoms; Denies Dizzy or Headache
Physical Exam
-
General: Well Developed, Well Nourished, Fever, Chills and Obese
HEENT: Normocephalic and Atraumatic
Respiratory: Clear to Auscultation; Negative Wheezes or Crackles
Cardiac: Regular Rhythm and S1/S2; Negative Murmur or Rub
GI: Soft, Nontender, Nondistended and Normal Bowel Sounds
Musculoskeletal: No Clubbing, No Cyanosis and No Edema
Skin: Warm and Dry; Negative Rash
Neuro: Awake, Alert and Oriented
[2024-11-08 14:16] LABS: C-Reactive Protein 207.80 mg/L (0.0-10.00)
[2024-11-08 14:19] LABS: Procalcitonin 0.28 ng/ml (0.0-0.25)
[2024-11-08 14:37] LABS: Ferritin 743.0 ng/ml (17.9-464.0)
[2024-11-08 15:00] VITALS: BP 139/79
[2024-11-08 15:08] LABS: Folate 10.0 ng/ml (2.76-20); Vitamin B12 190 pg/ml (239-931)
--- NOTE | 2024-11-08 16:32 | CM ---
Patient seen at bedside with physicians on . Patient continues to have fever and pending CT scans per physicians. Watch for home IV antibiotics and VN needs. CM will continue to follow for discharge planning needs.
Plan; home with no needs
[2024-11-08] MEDS: CYANOCOBALAMIN 1000 MCG IM (17:34)
[2024-11-08] MEDS: LOVENOX 40 MG SC (17:35)
[2024-11-08 19:55] VITALS: BP 143/83
[2024-11-08] MEDS: NORVASC 5 MG PO (21:32)
[2024-11-08] MEDS: ZESTRIL 10 MG PO (21:32)
[2024-11-08 23:55] VITALS: BP 133/64
[2024-11-09] VITALS (11 sets, daily range): BP systolic 77–158; BP diastolic 74–97
[2024-11-09] MEDS: MAXIPIME 1000 MG IV ×4 (05:05→23:22)
[2024-11-09] MEDS: STERILE WATER FOR INJECTION 10 ML IV ×4 (05:05→23:22)
[2024-11-09] MEDS: SYNTHROID PO (05:23)
[2024-11-09 07:21] LABS: Hematocrit 32.1 % (39.0-52.0); Hemoglobin 10.8 g/dL (13.0-18.0); Mean Corp Hgb Conc. 33.6 g/dL (33.0-37.0); Mean Corpuscular Volume 83.4 fL (80.0-94.0); Platelet Count 335 10^3/uL (130-400); Red Cell Dist. Width 13.2 % (11.5-14.5)
[2024-11-09 07:35] LABS: ALT (SGPT) 85 U/L (0-50); AST (SGOT) 38 U/L (17-59); Albumin 3.2 g/dl (3.5-5.0); Alkaline Phosphatase 310 U/L (38-126); Blood Urea Nitrogen 10 mg/dl (9-20); Calcium 8.6 mg/dl (8.4-10.2); Carbon Dioxide 25 mmol/L (22-30); Chloride 105 mmol/L (98-107); Estimated Creatinine Clearance 116 ml/min; Glucose 112 mg/dl (70-99); Potassium 3.9 mmol/L (3.5-5.1); Sodium 135 mmol/L (135-145); Total Protein 6.3 g/dl (6.3-8.2); eGFR > 60.00
[2024-11-09] MEDS: CYANOCOBALAMIN 1000 MCG IM (08:50)
--- NOTE | 2024-11-09 11:24 | CON.GS ---
Addendum entered and electronically signed by Evelio De La Torre MD 11/09/24 13:58:
IR attempt unsuccessful. OK for diet. Would treat with IV abx per ID for now. Will follow peripherally.
Addendum entered and electronically signed by Evelio De La Torre MD 11/09/24 11:52:
I saw and examined the patient.
The Shear Operator Helper's note was reviewed and I agree with the note.
Comment: No pain, c/o fever and weakness. Abd exam benign. Negative psoas sign. Given lack of pain I suspect more likely this is necrotic lymphadenopathy, considering hx of testicular CA. No plan for acute surgical intervention. Await IR sampling.
Will follow peripherally.
Original Note:
Consultation
-
Date/Time Consultation Performed: 11/09/24 0958
Medical History
-
Chief Complaint: fevers
History of Present Illness:
Mr Sung is a 63 yo male with h/o testicular cancer s/p right orchiectomy and recent prostatectomy for prostate CA in April who presented for persistent fevers x10 days as an outpatient with recent treatment for pna from an urgent care without
improvement. He notes increased fatigue, malaise and sweats. He notes that he has been so tired he has had difficulty standing. He denies abdominal pain. He denies leg pain. His major complaint currently is a headache.
Past Medical History
Past Medical History: Cancer (prostate, testicular), HTN, Hypercholesterolemia and Hypothyroidism
Past Surgical History: Hernia Repair (inguinal hernia repair) and Urological (prostatectomy 04/2024, right orchiectomy)
Social History
Tobacco: Non-Smoker
Alcohol: Occasional
Personal:
Living: With Family
Family History
Family History: Reviewed & Not Pertinent
Allergies / Home Medications
Allergy/AdvReac Type Severity Reaction Status Date / Time
No Known Allergies Allergy Verified 11/06/24 21:29
�Medication �Instructions �Recorded �Confirmed �Type
acetaminophen 500 mg tablet 1,000 mg PO DAILYPRN PRN mild 11/06/24 11/06/24 History
(Tylenol Extra Strength) pain/fever
amlodipine 5 mg tablet 5 mg PO HS 11/06/24 11/06/24 History
cefuroxime axetil 250 mg tablet 250 mg PO BID 11/06/24 11/06/24 History
doxycycline hyclate 100 mg capsule 100 mg PO BID 11/06/24 11/06/24 History
ibuprofen 200 mg tablet 600 mg PO Q6HPRN PRN mild 11/06/24 11/06/24 History
pain/fever
levothyroxine 50 mcg tablet 50 mcg PO DAILY 11/06/24 11/06/24 History
lisinopril 10 mg tablet 10 mg PO HS 11/06/24 11/06/24 History
tadalafil 5 mg tablet 5 mg PO DAILY 11/06/24 11/06/24 History
Review of Systems
-
History Source: Patient
All other systems: Negative unless noted
A 10 point review of systems was completed, and was negative except as per HPI.
Physical Exam
Vital Signs
Temp Pulse Resp BP Pulse Ox
99.6 F 84 14 133/74 92
11/09/24 08:00 11/09/24 08:00 11/09/24 08:00 11/09/24 08:00 11/09/24 08:00
Body Mass Index (BMI) 32.4
Lab Results
11/09/24 06:52
11/09/24 06:52
WBC 12.5 10^3/uL (4.8-10.8) H 11/09/24 06:52
Hgb 10.8 g/dL (13.0-18.0) L 11/09/24 06:52
Hct 32.1 % (39.0-52.0) L 11/09/24 06:52
Plt Count 335 10^3/uL (130-400) 11/09/24 06:52
Abs Immat Gran (auto) 0.1 10^3/uL (0-0.05) H 11/08/24 06:33
Neutrophils % 77.9 % (42.2-75.2) H 11/08/24 06:33
Physical Exam
General: Well Developed, Comfortable and Fever
HEENT: Normocephalic
Respiratory: Non Labored Respirations
GI: Soft, Non Tender and Non Distended
Musculoskeletal: No Cyanosis, No Edema and Other (movement/ROM intact to BLLE, equal strength)
Skin: Warm and Dry
Neuro: Awake, Alert and AO x 3
Psych: Calm
Data Reviewed
-
CT Scan: Image Personally Visualized and interpreted, Report Reviewed by me, Discussed with Physician and Discussed with Patient
Labs: Labs Reviewed by me, Discussed with Physician and Discussed with Patient
Old Records: Reviewed
Assessment / Plan
-
63 yo male s/p prostatectomy for prostate CA in April presenting with persistent fevers/sepsis with leukocytosis. Imaging yesterday with abscess present in the right psoas muscle with adjacent necrotic lymphadenopathy inferiorly which is likely
the etiology of his fevers. Unclear etiology of abscess although malignancy is quite possible given presence of necrotic lymphadenopathy, possibly secondary to recent surgery as well although this was around 6 months ago.
Plan:
IR drainage of abscess today, orders placed for both cultures and cytology
No plans for surgery if IR drainage successful
Ok to advance diet post procedure
ABX as per ID
Medical management as per primary team
--- NOTE | 2024-11-09 12:52 | W.PN.UPDATE ---
Update Note
Progress Note Update
- Attempted CT guided aspiration/drainage of R pelvic sidewall collection this morning, which unfortunately was unsuccessful
- Small window with close proximity to the external iliac vessels. We were able to navigate an 18g needle posterior these vessels with needle tip apparently within the collection but no fluid able to be aspirated. Tried to pass a wire with
resistance which ended up kinking wire with loss of access. Possibly we were tenting the collection or maybe its necrotic tissue though I think this is unlikely.
- Would continue abx and await surgical input.
--- NOTE | 2024-11-09 14:49 | W.PN.HOSP.TC ---
Addendum entered and electronically signed by Neda Mcmillan MD 11/09/24 16:13:
I saw and evaluated the patient independently. I reviewed the resident�s note and agree with findings and plan as documented by Dr. May.
GENERAL: well developed, well nourished, male in no apparent distress--appears improved today
HEENT: NC/AT--no O2 requirements
HEART: regular rate and rhythm, +S1, +S2
LUNGS: clear to auscultation bilaterally
ABDOM: soft, nontender, nondistended, + bowel sounds
EXT: no cyanosis, clubbing, or edema
NEUROLOGIC: grossly intact
fever of unknown origin now clearly sepsis from CT scan findings--rim-enhancing fluid collection in the anterior right psoas muscle, Inferiorly this abuts a multiloculated rim-enhancing fluid collection in the right external iliac chain region,
probably abscess formation particularly in the psoas muscle-- Necrotic lymphadenopathy for the findings about the external iliac chain are more likely--apprec ID-- cultures negative to date--cont cefepime--Covid/flu negative--apprec surgery/IR --not
amenable to IR drainage--will likely end up needing IV ABX--will await ID input
Elevated ALT & ALKP--related to CT findings?--follow
essential HTN--cont amlodipine, lisinopril as able
hypothyroid--cont levothyroxine
B12 deficiency--replete
DVT Proph--SC heparin
CODE STATUS--Full code
Original Note:
Today's Communication/Plan
-
IR unable to aspirate abscess
Continue antibiotic therapy
Assessment / Plan
Assessment / Plan
Mr. Sung is a 63-year-old man with a past medical history of hypertension, hyperlipidemia, hypothyroidism, testicular and prostate cancer status post right orchiectomy prostatectomy who to ED wtih complaint of persistent fevers. He was diagnosed
with flu and pnuemonia 10 days ago. treated with tamiflu and placed on doxycycline without improvement. Ceftin was added 4 days ago due to persistent fevers and repeat xray without improvement. Today reports increasing SOB, fevers >101. Labs
reviewed. WBC 15 with left shift. Lactic normal at 1.4. Temp of 102 in ED. CXR showed atelectasis vs pneumonia. Patient was started on Vancomycin and cefepime, admit to hospitalist for pneumonia, persistent fevers, JI. In the hospital he
received IV fluid hydration and infectious disease was consulted. A respiratory pathogen panel was sent, which was negative. ID sent parasite panel which was also negative. Patient was transitioned to cefepime only. ID recommended echo and
pending CT scan. Hernandez CT scan showed rim-enhancing fluid collection in the anterior right psoas muscle, Inferiorly this abuts a multiloculated rim-enhancing fluid collection in the right external iliac chain region, probably abscess formation
particularly in the psoas muscle and adjacent necrotic lymphadenopathy, most likely source of sepsis given inconclusive chest x-ray and chest CT. IR and general surgery were consulted for possible drainage. On 11/09 patient was taken to IR for
drainage however IR was unable to drain due to lack of space and proximity to iliac vessels. Patient was continued on IV antibiotics and awaiting general surgery input.
#Sepsis due to psoas abscess
# Fever of unknown origin
# Psoas abscess
Psoas abscess likely source of unrelenting fever
Patient not improving on IV antibiotics
Hx of prostate testicular cancer
Hx of positive FIT test
IR unable to aspirate
General Surgery consult
- failed OP ABx Doxycycline, Ceftin
- WBC 15 with left shift. Lactic normal, pw increasing SOB, fevers >102 in ED
- BCx pending
- IV cefepime
- COVID negative influenza negative
- ID consult, appreciate recs
- CT chest abdomen pelvis showed abscess in right psoas muscle with necrotic lymphadenopathy
- echo showed no endocarditis
-Continue IV antibiotics
- Fever of unknown origin workup
-Ferritin elevated 743
- ESR ELEVATED 89
- CRP elevated 207
- procalcitonin elevated 0.28, indicating likely bacterial infection, continue antibiotic
- TREMAYNE ANCA pending
- RF pending
- B12 low 190
- folate within normal limits 10
- PSA pending
#Elevated ALT & ALKP:
2/2 to sepsis
- IV NS
- Trend LFts
- ALT 85 and alk phos 310 elevated 11/09
DVT Px:
Subcu heparin
CODE STATUS
Full code
Anticipated Discharge: > 48 hours
Subjective/Interval History
-
Patient was seen at bedside. Informed patient and of CT results yesterday, and the need for IR drainage. He reported headache, yesterday had headache that resolved with caffeine. Patient has been n.p.o. since midnight for IR procedure.
Still reporting fatigue chills and fevers. No other complaints. Date of Service: November 09, 2024
Objective Data
-
Labs:
Laboratory Results
11/09/24
06:52
WBC 12.5 H
Hgb 10.8 L
Hct 32.1 L
Plt Count 335
Sodium 135
Potassium 3.9
Chloride 105
Carbon Dioxide 25
BUN 10
Creatinine 0.8
Glucose 112 H
Calcium 8.6
Total Bilirubin 0.8
AST 38
ALT 85 H
Alkaline Phosphatase 310 H
Vital Signs:
Vital Signs
Temp Pulse Resp BP Pulse Ox
98.8 F 87 14 154/97 97
11/09/24 13:34 11/09/24 13:34 11/09/24 13:34 11/09/24 13:34 11/09/24 13:34
I&O
11/08/24 11/09/24 11/10/24
06:59 06:59 06:59
Intake Total 480 / 480 1440 / 1440
Output Total 850 / 850 2850 / 2850
Balance -370 / -370 -1410 / -1410
Review of Systems
-
History Source: Patient
Constitutional: Reports Fever, Fatigue and Chills; Denies No Appetite
EENT: Denies Sore Throat or Runny Nose
Respiratory: Reports No Symptoms; Denies Cough, Trouble Breathing or Wheezing
Cardiac: Reports No Symptoms; Denies Chest Pain or Palpitations
Abdomen/GI: Reports No Symptoms; Denies Abdominal Pain, Nausea, Vomiting or Diarrhea
Genitourinary: Reports No Symptoms; Denies Dysuria
Musculoskeletal: Reports No Symptoms; Denies Joint Pain
Skin: Reports No Symptoms; Denies Itching
Neuro: Reports Headache; Denies Dizzy
Physical Exam
-
General: Well Developed and Fever
HEENT: Normocephalic and Atraumatic
Respiratory: Clear to Auscultation and Non Labored Respirations; Negative Wheezes or Crackles
Cardiac: Regular Rhythm and S1/S2; Negative Murmur
GI: Soft, Nontender, Nondistended and Normal Bowel Sounds
Musculoskeletal: No Clubbing, No Cyanosis and No Edema
Skin: Warm and Dry
Neuro: Awake and Alert
--- NOTE | 2024-11-09 16:19 | PTCARENOTE ---
Assumed the care of this pt at 1530. Pt is AAOx3, VSS. No changes in pt assessment. Sinus rhythm on the monitor. Right groin IR site band-aid intact, small amount of bloody drainage on the band-aid. Pt resting in bed comfortably.
[2024-11-09] MEDS: LOVENOX 40 MG SC (17:10)
[2024-11-09] MEDS: ZESTRIL 10 MG PO (22:06)
[2024-11-09] MEDS: TYLENOL 650 MG PO (22:06)
[2024-11-09] MEDS: NORVASC 5 MG PO (22:06)
[2024-11-10 03:56] VITALS: BP 129/81
[2024-11-10] MEDS: MAXIPIME 1000 MG IV ×4 (06:29→23:56)
[2024-11-10] MEDS: SYNTHROID 50 MCG PO (06:29)
[2024-11-10] MEDS: STERILE WATER FOR INJECTION 10 ML IV ×4 (06:29→23:55)
[2024-11-10 07:45] VITALS: BP 152/97
[2024-11-10 08:05] LABS: Hematocrit 34.9 % (39.0-52.0); Hemoglobin 11.8 g/dL (13.0-18.0); Mean Corp Hgb Conc. 33.8 g/dL (33.0-37.0); Mean Corpuscular Volume 82.9 fL (80.0-94.0); Platelet Count 356 10^3/uL (130-400); Red Cell Dist. Width 13.2 % (11.5-14.5)
[2024-11-10 08:21] LABS: ALT (SGPT) 96 U/L (0-50); AST (SGOT) 45 U/L (17-59); Albumin 3.3 g/dl (3.5-5.0); Alkaline Phosphatase 335 U/L (38-126); Blood Urea Nitrogen 14 mg/dl (9-20); Calcium 8.8 mg/dl (8.4-10.2); Carbon Dioxide 23 mmol/L (22-30); Chloride 105 mmol/L (98-107); Estimated Creatinine Clearance 116 ml/min; Glucose 107 mg/dl (70-99); Potassium 4.3 mmol/L (3.5-5.1); Sodium 134 mmol/L (135-145); Total Protein 6.6 g/dl (6.3-8.2); eGFR > 60.00
[2024-11-10] MEDS: CYANOCOBALAMIN 1000 MCG IM (09:20)
[2024-11-10] MEDS: ZYRTEC 5 MG PO (09:22)
[2024-11-10 11:35] VITALS: BP 129/88
[2024-11-10] MEDS: MIRALAX 17 GRAMS PO (13:35)
[2024-11-10] MEDS: HYDROCORTISONE 2.5% OINTMENT 1 APPLIC TOPICAL ×2 (13:40→22:11)
--- NOTE | 2024-11-10 13:57 | W.PN.HOSP.TC ---
Addendum entered and electronically signed by Neda Mcmillan MD 11/10/24 17:25:
I saw and evaluated the patient independently. I reviewed the resident�s note and agree with findings and plan as documented by Dr. May.
GENERAL: well developed, well nourished, male in no apparent distress
HEENT: NC/AT--no O2 requirements
HEART: regular rate and rhythm, +S1, +S2
LUNGS: clear to auscultation bilaterally
ABDOM: soft, nontender, nondistended, + bowel sounds
EXT: no cyanosis, clubbing, or edema
NEUROLOGIC: grossly intact
fever of unknown origin now clearly sepsis from CT scan findings--rim-enhancing fluid collection in the anterior right psoas muscle, Inferiorly this abuts a multiloculated rim-enhancing fluid collection in the right external iliac chain region,
probably abscess formation particularly in the psoas muscle-- Necrotic lymphadenopathy for the findings about the external iliac chain are more likely--apprec ID-- cultures negative to date--cont cefepime--Covid/flu negative--apprec surgery/IR --not
amenable to IR drainage, possibly will need LN bx--will likely end up needing IV ABX
Elevated ALT & ALKP--related to CT findings?--follow
essential HTN--cont amlodipine, lisinopril as able
hypothyroid--cont levothyroxine
B12 deficiency--replete
DVT Proph--SC heparin
CODE STATUS--Full code
Original Note:
Today's Communication/Plan
-
DC telemetry
Transfer to [facility]
Hydrocortisone topical
runny nose, resolving with cetirizine
Continue IV antibiotics
Assessment / Plan
Assessment / Plan
Mr. Sung is a 63-year-old man with a past medical history of hypertension, hyperlipidemia, hypothyroidism, testicular and prostate cancer status post right orchiectomy prostatectomy who to ED [facility] complaint of persistent fevers. He was diagnosed
with flu and pnuemonia 10 days ago. treated with tamiflu and placed on doxycycline without improvement. Ceftin was added 4 days ago due to persistent fevers and repeat xray without improvement. Today reports increasing SOB, fevers >101. Labs
reviewed. WBC 15 with left shift. Lactic normal at 1.4. Temp of 102 in ED. CXR showed atelectasis vs pneumonia. Patient was started on Vancomycin and cefepime, admit to hospitalist for pneumonia, persistent fevers, JI. In the hospital he
received IV fluid hydration and infectious disease was consulted. A respiratory pathogen panel was sent, which was negative. ID sent parasite panel which was also negative. Patient was transitioned to cefepime only. ID recommended echo and
pending CT scan. Hernandez CT scan showed rim-enhancing fluid collection in the anterior right psoas muscle, Inferiorly this abuts a multiloculated rim-enhancing fluid collection in the right external iliac chain region, probably abscess formation
particularly in the psoas muscle and adjacent necrotic lymphadenopathy, most likely source of sepsis given inconclusive chest x-ray and chest CT. IR and general surgery were consulted for possible drainage. On 11/09 patient was taken to IR for
drainage however IR was unable to drain due to lack of space and proximity to iliac vessels. Patient was continued on IV antibiotics and awaiting general surgery input. On 11/10 patient with improving white count but was still having fevers,
fatigue, and developed rash in right upper extremity adjacent to IV site.
#Sepsis due to psoas abscess
# Fever of unknown origin
# Psoas abscess
Psoas abscess likely source of unrelenting fever
Patient not improving on IV antibiotics
Hx of prostate testicular cancer
Hx of positive FIT test
IR unable to aspirate
General Surgery consult
- failed OP ABx Doxycycline, Ceftin
- WBC 15 with left shift. Lactic normal, pw increasing SOB, fevers >102 in ED
- BCx pending
- IV cefepime
- COVID negative influenza negative
- ID consult, appreciate recs
- CT chest abdomen pelvis showed abscess in right psoas muscle with necrotic lymphadenopathy
- echo showed no endocarditis
-Continue IV antibiotics
- Fever of unknown origin workup
- TREMAYNE ANCA pending
- RF pending
- PSA pending
#Elevated ALT & ALKP:
2/2 to sepsis
- IV NS
- Trend LFts
- ALT 96 and alk phos 335 elevated 11/10
- Possibly due to NAFLD, viral hep, drug-induced
- Given CT findings unlikely to be biliary obstruction, thrombosis
# Rash, right upper extremity
Likely contact dermatitis from adhesives
Adjacent to IV site
DDx includes cellulitis versus contact dermatitis
-Hydrocortisone cream
- Consider imaging if not improving
DVT Px:
Subcu heparin
CODE STATUS
Full code
Anticipated Discharge: > 48 hours
Subjective/Interval History
-
Patient still fatigued and having fevers, developed runny nose overnight. Patient does have slight improvement in fatigue. Reported some mild abdominal pain in the rib resolved on its own. Has not had a bowel movement in 5 days. Patient also
developed itchiness and rash on right upper extremity adjacent to IV site. Headaches have resolved but still having fevers, no issues with urination. Date of Service: November 10, 2024
Objective Data
-
Labs:
Laboratory Results
11/10/24
07:35
WBC 11.0 H
Hgb 11.8 L
Hct 34.9 L
Plt Count 356
Sodium 134 L
Potassium 4.3
Chloride 105
Carbon Dioxide 23
BUN 14
Creatinine 0.8
Glucose 107 H
Calcium 8.8
Total Bilirubin 0.8
AST 45
ALT 96 H
Alkaline Phosphatase 335 H
Vital Signs:
Vital Signs
Temp Pulse Resp BP Pulse Ox
98.9 F 100 16 129/88 96
11/10/24 12:32 11/10/24 11:35 11/10/24 11:35 11/10/24 11:35 11/10/24 11:35
I&O
11/09/24 11/10/24 11/11/24
06:59 06:59 06:59
Intake Total 1440 / 1440
Output Total 2850 / 2850 900 / 900 700 / 700
Balance -1410 / -1410 -900 / -900 -700 / -700
Review of Systems
-
History Source: Patient
Constitutional: Reports Fever, Fatigue and Chills
EENT: Reports Runny Nose; Denies Sore Throat
Respiratory: Reports No Symptoms; Denies Cough, Trouble Breathing or Wheezing
Cardiac: Reports No Symptoms; Denies Chest Pain, Palpitations or Syncope
Abdomen/GI: Reports No Symptoms and Constipated (No bowel movement 5 days); Denies Abdominal Pain, Nausea, Vomiting or Diarrhea
Genitourinary: Reports No Symptoms; Denies Dysuria
Skin: Reports Itching and Rash
Neuro: Reports No Symptoms; Denies Dizzy or Headache
Physical Exam
-
General: Well Developed, Well Nourished, Fever and Obese
HEENT: Normocephalic, Atraumatic and Nose Appears Normal
Respiratory: Clear to Auscultation; Negative Wheezes or Crackles
Cardiac: Regular Rhythm, S1/S2 and Tachycardic; Negative Murmur or Rub
GI: Soft, Nontender, Nondistended and Normal Bowel Sounds
Musculoskeletal: No Clubbing, No Cyanosis and No Edema
Skin: Warm, Dry and Rash (Right upper extremity adjacent to IV site)
Neuro: Awake, Alert and Oriented
--- NOTE | 2024-11-10 14:04 | W.PN.ID1 ---
Date of Service
Date of Service: November 10, 2024
Today's Communication
Continue cefepime for today
Assessment / Plan
# Febrile illness, unclear etiology
# Leukocytosis; improving
# Anemia
# Elevated ALT
- Symptoms did not respond to 10 days doxycycline nor 5 days of oseltamivir (outpatient)
- CXR: atelectasis
- SARS/Flu neg
- Parasite smear x 2 negative
- Blood cx's neg to date.
- TTE without valvular disease. No vegetation noted.
- CT of the abdomen suggested right psoas muscle abscess with adjacent necrotic lymphadenopathy. Aspiration unsuccessful.
- Continue empiric cefepime for now.
- Trend temps and CBC
- May ultimately need bx of involved lymph nodes
Chief Complaint
-: Fever
Subjective / Review of Systems
Patient seen and examined. Continues to report feeling achy. Fever noted last evening. Overall temperature curve appears to be having a downward trend.
Vital Signs / Physical Exam
Vital Signs
Vital Signs
Temp Pulse Resp BP Pulse Ox
98.9 F 100 16 129/88 96
11/10/24 12:32 11/10/24 11:35 11/10/24 11:35 11/10/24 11:35 11/10/24 11:35
Physical Exam
Constitutional: No Acute Distress
Eyes: No Conjunctival Hemorrhage and Sclera Anicteric
Cardiovascular: S1/S2; Negative S3/S4
Pulmonary: Coarse (bibase) and Non Labored
Gastrointestinal: Soft, Non Tender, Non Distended and Normal Bowel Sounds
Genito-Urinary: Negative CVA Tenderness
Extremities: Negative Edema
Musculoskeletal: Negative Spinal Tenderness
Skin: Negative Rash
Neurological: AO x 3
Objective Data
Lab Data
Lab Results
11/10/24 07:35
11/10/24 07:35
ESR 89 mm/hour (0-20) H 11/08/24 13:27
Estimated Creat Clear 116 ml/min 11/10/24 07:35
Lactic Acid 1.4 mmol/L (0.7-2.0) 11/06/24 20:13
Total Bilirubin 0.8 mg/dl (0.2-1.3) 11/10/24 07:35
AST 45 U/L (17-59) 11/10/24 07:35
ALT 96 U/L (0-50) H 11/10/24 07:35
Alkaline Phosphatase 335 U/L (38-126) H 11/10/24 07:35
C-Reactive Protein 207.80 mg/L (0.0-10.00) H 11/08/24 13:27
Most recent labs reviewed.
Micro Results:
11/06/24 20:13 Blood Culture - Preliminary
Blood/Venous No Growth in 72 hours- Final report to follow
11/06/24 17:34 Blood Culture - Preliminary
Blood/Venous No Growth in 72 hours- Final report to follow
11/08/24 06:33 Blood Parasites Smear - Final
Blood/Venous
11/06/24 22:08 MRSA Screen - Final
Nose No Methicillin Resistant Staphylococcus aureus isolated.
11/06/24 22:08 Nasal Screen MRSA (PCR) - Final
Nose
11/07/24 12:23 Blood Parasites Smear - Final
Blood/Venous
11/07/24 11:11 Influenza Types A & B (SHANEL) - Final
Nasal Swab Negative for Influenza A & B, NAAT
Negative results must be combined with clinical observations
and patient history.
Nucleic Acid Amplification test (NAAT)performed on the
[employer] platform.
11/07/24 00:52 Legionella Urinary Antigen - Final
Urine Negative for Legionella pneumophila Serogroup 1 antigen.
A negative result does not rule out the possiblity of
Legionella infection due to other serogroups or species of
Legionella. Clinical correlation is recommended.
11/07/24 00:52 Streptococcus pneumoniae Antigen (M - Final
Urine Negative for Streptococcus pneumoniae antigen.
A negative result does not exclude infection with
Streptococcus pneumoniae. Clinical correlation is
recommended.
11/06/24 CXR: Mild bibasilar opacities which are favored to represent atelectasis, however pneumonia cannot be excluded.
--- NOTE | 2024-11-10 14:37 | CM ---
Patient seen at bedside on . Patient states that he is still very weak. Patient for possible IV antibiotics at home, awaiting perscription. CM will continue to follow for discharge planning needs.
Plan; watch for home IV antibiotic needs and VN vs home with no needs.
[2024-11-10 15:35] VITALS: BP 142/82
[2024-11-10] MEDS: LOVENOX 40 MG SC (17:10)
[2024-11-10] MEDS: NORVASC 5 MG PO (22:11)
[2024-11-10] MEDS: ZESTRIL 10 MG PO (22:11)
[2024-11-10 23:30] VITALS: BP 149/86
[2024-11-11] MEDS: SYNTHROID 50 MCG PO (05:23)
[2024-11-11] MEDS: MAXIPIME 1000 MG IV (05:24)
[2024-11-11] MEDS: STERILE WATER FOR INJECTION 10 ML IV (05:24)
[2024-11-11] MEDS: TYLENOL 650 MG PO ×2 (05:29→10:13)
[2024-11-11 07:50] VITALS: BP 127/83
[2024-11-11 08:17] LABS: Hematocrit 37.0 % (39.0-52.0); Hemoglobin 12.3 g/dL (13.0-18.0); Mean Corp Hgb Conc. 33.2 g/dL (33.0-37.0); Mean Corpuscular Volume 83.1 fL (80.0-94.0); Platelet Count 387 10^3/uL (130-400); Red Cell Dist. Width 13.3 % (11.5-14.5)
[2024-11-11 08:55] LABS: ALT (SGPT) 95 U/L (0-50); AST (SGOT) 40 U/L (17-59); Albumin 3.4 g/dl (3.5-5.0); Alkaline Phosphatase 349 U/L (38-126); Blood Urea Nitrogen 11 mg/dl (9-20); Calcium 8.9 mg/dl (8.4-10.2); Carbon Dioxide 26 mmol/L (22-30); Chloride 103 mmol/L (98-107); Estimated Creatinine Clearance 103 ml/min; Glucose 115 mg/dl (70-99); Potassium 4.6 mmol/L (3.5-5.1); Sodium 136 mmol/L (135-145); Total Protein 6.6 g/dl (6.3-8.2); eGFR > 60.00
[2024-11-11] MEDS: HYDROCORTISONE 2.5% OINTMENT 1 APPLIC TOPICAL ×2 (09:15→20:40)
[2024-11-11] MEDS: CYANOCOBALAMIN 1000 MCG IM (09:15)
[2024-11-11] MEDS: ZYRTEC 5 MG PO (09:15)
--- NOTE | 2024-11-11 09:32 | W.PN.HOSP.TC ---
Today's Communication/Plan
-
PT OT
Continue IV antibiotics
Assessment / Plan
Assessment / Plan
Mr. Sung is a 63-year-old man with a past medical history of hypertension, hyperlipidemia, hypothyroidism, testicular and prostate cancer status post right orchiectomy prostatectomy who to ED wt complaint of persistent fevers. He was diagnosed
with flu and pnuemonia 10 days ago. treated with tamiflu and placed on doxycycline without improvement. Ceftin was added 4 days ago due to persistent fevers and repeat xray without improvement. Today reports increasing SOB, fevers >101. Labs
reviewed. WBC 15 with left shift. Lactic normal at 1.4. Temp of 102 in ED. CXR showed atelectasis vs pneumonia. Patient was started on Vancomycin and cefepime, admit to hospitalist for pneumonia, persistent fevers, JI. In the hospital he
received IV fluid hydration and infectious disease was consulted. A respiratory pathogen panel was sent, which was negative. ID sent parasite panel which was also negative. Patient was transitioned to cefepime only. ID recommended echo and
pending CT scan. Hernandez CT scan showed rim-enhancing fluid collection in the anterior right psoas muscle, Inferiorly this abuts a multiloculated rim-enhancing fluid collection in the right external iliac chain region, probably abscess formation
particularly in the psoas muscle and adjacent necrotic lymphadenopathy, most likely source of sepsis given inconclusive chest x-ray and chest CT. IR and general surgery were consulted for possible drainage. On 11/09 patient was taken to IR for
drainage however IR was unable to drain due to lack of space and proximity to iliac vessels. Patient was continued on IV antibiotics and awaiting general surgery input. On 11/10 patient with improving white count but was still having fevers,
fatigue, and developed rash in right upper extremity adjacent to IV site.
#Sepsis due to psoas abscess
# Fever of unknown origin
# Psoas abscess
Psoas abscess likely source of unrelenting fever
Patient not improving on IV antibiotics
Hx of prostate testicular cancer
Hx of positive FIT test
IR unable to aspirate
General Surgery consult
- failed OP ABx Doxycycline, Ceftin
- WBC 15 with left shift. Lactic normal, pw increasing SOB, fevers >102 in ED
- BCx no growth
- IV cefepime
- COVID negative influenza negative
- ID consult, appreciate recs
- CT chest abdomen pelvis showed abscess in right psoas muscle with necrotic lymphadenopathy
- echo showed no endocarditis
-Continue IV antibiotics
- Fever of unknown origin workup
- TREMAYNE ANCA pending
- RF pending
- PSA pending
-CPK
#Elevated ALT & ALKP:
2/2 to sepsis
- IV NS
- Trend LFts
- ALT 95 and alk phos 349 elevated 11/11
- Possibly due to NAFLD, viral hep, drug-induced
- Given CT findings unlikely to be biliary obstruction, thrombosis
# Rash, right upper extremity, improving
Likely contact dermatitis from adhesives
Adjacent to IV site
DDx includes cellulitis versus contact dermatitis
-Hydrocortisone cream
- Consider imaging if not improving
DVT Px:
Subcu heparin
CODE STATUS
Full code
Anticipated Discharge: 24 - 48 hours
Subjective/Interval History
-
Reports feeling much better than any other day. However he did wake up feeling drenched in sweat. His fatigue is mildly improved. No longer has redness on right upper extremity or itchiness. Does have mild runny nose this morning. He also
reported an achy pain on his left arm that started in the left upper extremity and traveled up to his shoulder. No cough no shortness of breath no chest pain. Pain alleviated when he turned and slept on right side of body. No pain this a.m. he
went to the bathroom yesterday and had a bowel movement. Date of Service: November 11, 2024
Objective Data
-
Labs:
Laboratory Results
11/11/24
07:54
WBC 11.9 H
Hgb 12.3 L
Hct 37.0 L
Plt Count 387
Sodium 136
Potassium 4.6
Chloride 103
Carbon Dioxide 26
BUN 11
Creatinine 0.9
Glucose 115 H
Calcium 8.9
Total Bilirubin 0.6
AST 40
ALT 95 H
Alkaline Phosphatase 349 H
Vital Signs:
Vital Signs
Temp Pulse Resp BP Pulse Ox
98.1 F 93 16 127/83 94
11/11/24 07:50 11/11/24 07:50 11/11/24 07:50 11/11/24 07:50 11/11/24 07:50
I&O
11/10/24 11/11/24 11/12/24
06:59 06:59 06:59
Intake Total 840 / 840
Output Total 900 / 900 2800 / 2800
Balance -900 / -900 -1960 / -1959
Review of Systems
-
History Source: Patient
Constitutional: Reports Fever, Fatigue, Night Sweats and Chills
EENT: Reports Runny Nose; Denies Sore Throat
Respiratory: Reports No Symptoms; Denies Cough, Trouble Breathing or Wheezing
Cardiac: Reports No Symptoms; Denies Chest Pain, Diaphoresis, Palpitations or Syncope
Abdomen/GI: Reports No Symptoms; Denies Abdominal Pain, Nausea, Vomiting or Diarrhea
Genitourinary: Reports No Symptoms; Denies Dysuria, Frequency or Flank Pain
Musculoskeletal: Reports No Symptoms
Skin: Reports No Symptoms; Denies Itching
Neuro: Reports No Symptoms; Denies Dizzy or Headache
Physical Exam
-
General: Well Developed, Well Nourished, No Apparent Distress, Fever, Sweats and Obese; Negative Respiratory Distress
HEENT: Normocephalic and Atraumatic
Respiratory: Clear to Auscultation and Non Labored Respirations; Negative Wheezes or Crackles
Cardiac: Regular Rhythm, S1/S2 and Tachycardic; Negative Murmur or Rub
GI: Soft, Nontender, Nondistended and Normal Bowel Sounds
Musculoskeletal: No Clubbing, No Cyanosis and No Edema
Skin: Warm and Dry; Negative Rash
Neuro: Awake, Alert and Oriented
[2024-11-11 10:14] VITALS: BP 149/95
[2024-11-11 11:52] LABS: Rheumatoid Agglutinin Less Than 10 IU (<10 IU)
--- NOTE | 2024-11-11 12:05 | W.PN.ID1 ---
Date of Service
Date of Service: November 11, 2024
Today's Communication
Broaden cefepime to Zosyn.
Assessment / Plan
# Right psoas suspected abscess with adjacent necrotic lymphadenopathy
# Fever resolved
# Leukocytosis; improving
# Elevated ALT
- Symptoms did not respond to 10 days doxycycline nor 5 days of oseltamivir (outpatient)
- CXR: atelectasis
- SARS/Flu neg
- Parasite smear x 2 negative
- Blood cx's neg to date.
- TTE without valvular disease. No vegetation noted.
- CT of the abdomen suggested right psoas muscle abscess with adjacent necrotic lymphadenopathy.
IR Aspiration unsuccessful.
Surgery following
- Broaden cefepime to Zosyn
- Trend temps and CBC
- May ultimately need bx of involved lymph nodes for path and cultures.
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
Hypertension
hx prostate ca s/p prostatectomy
Hx testicular ca s/p right orchiectomy
Hx inguinal hernia repari
Chief Complaint
-: Fever
Subjective / Review of Systems
Feels a bit better.
Vital Signs / Physical Exam
Vital Signs
Vital Signs
Temp Pulse Resp BP Pulse Ox
98.1 F 98 18 149/95 95
11/11/24 10:14 11/11/24 10:14 11/11/24 10:14 11/11/24 10:14 11/11/24 10:14
Physical Exam
Constitutional: No Acute Distress
Cardiovascular: Regular Rate and S1/S2
Pulmonary: Clear
Gastrointestinal: Soft, Non Tender, Non Distended and Normal Bowel Sounds
Extremities: Negative Edema
Neurological: AO x 3
Objective Data
Lab Data
Lab Results
11/11/24 07:54
11/11/24 07:54
ESR 89 mm/hour (0-20) H 11/08/24 13:27
Estimated Creat Clear 103 ml/min 11/11/24 07:54
Lactic Acid 1.4 mmol/L (0.7-2.0) 11/06/24 20:13
Total Bilirubin 0.6 mg/dl (0.2-1.3) 11/11/24 07:54
AST 40 U/L (17-59) 11/11/24 07:54
ALT 95 U/L (0-50) H 11/11/24 07:54
Alkaline Phosphatase 349 U/L (38-126) H 11/11/24 07:54
C-Reactive Protein 207.80 mg/L (0.0-10.00) H 11/08/24 13:27
Most recent labs reviewed.
Micro Results:
11/06/24 20:13 Blood Culture - Preliminary
Blood/Venous No Growth in 4 days- Final report to follow
11/06/24 17:34 Blood Culture - Preliminary
Blood/Venous No Growth in 4 days- Final report to follow
11/08/24 06:33 Blood Parasites Smear - Final
Blood/Venous
11/06/24 22:08 MRSA Screen - Final
Nose No Methicillin Resistant Staphylococcus aureus isolated.
11/06/24 22:08 Nasal Screen MRSA (PCR) - Final
Nose
11/07/24 12:23 Blood Parasites Smear - Final
Blood/Venous
11/07/24 11:11 Influenza Types A & B (SHANEL) - Final
Nasal Swab Negative for Influenza A & B, NAAT
Negative results must be combined with clinical observations
and patient history.
Nucleic Acid Amplification test (NAAT)performed on the
[employer] platform.
11/07/24 00:52 Legionella Urinary Antigen - Final
Urine Negative for Legionella pneumophila Serogroup 1 antigen.
A negative result does not rule out the possiblity of
Legionella infection due to other serogroups or species of
Legionella. Clinical correlation is recommended.
11/07/24 00:52 Streptococcus pneumoniae Antigen (M - Final
Urine Negative for Streptococcus pneumoniae antigen.
A negative result does not exclude infection with
Streptococcus pneumoniae. Clinical correlation is
recommended.
11/08/24 CT C/A/P: Findings suggesting probable intramuscular abscess formation of the right psoas muscle with adjacent necrotic lymphadenopathy inferiorly
11/06/24 CXR: Mild bibasilar opacities which are favored to represent atelectasis, however pneumonia cannot be excluded.
[2024-11-11 13:02] VITALS: BP 149/90
[2024-11-11] MEDS: MOTRIN 600 MG PO (13:13)
[2024-11-11] MEDS: ZOSYN 50 IV ×3 (13:13→23:17)
--- NOTE | 2024-11-11 14:06 | CM ---
Chart reviewed. Care ongoing at this time.
Cont IV abx, will cont to watch for abx needs at d/c. No script at this time
Patient unable to participate in PT when attempted, therapy will re-attempt another time
Plan: CM will cont to follow for d/c planning
[2024-11-11 15:50] VITALS: BP 128/83
[2024-11-11] MEDS: LOVENOX 40 MG SC (17:50)
[2024-11-11] MEDS: NORVASC 5 MG PO (20:40)
[2024-11-11] MEDS: ZESTRIL 10 MG PO (20:41)
[2024-11-11 23:57] VITALS: BP 131/74
[2024-11-12] VITALS (7 sets, daily range): BP systolic 123–140; BP diastolic 74–97; PULSE 92–108; O2SAT 93
[2024-11-12 02:13] LABS: ANA, IgG Reflex to HEp-2 None Detected (None Detected)
--- NOTE | 2024-11-12 03:55 | DOWNTIME ---
There was a [employer] Client Veterinary Bacteriologist Downtime on 11/12/2024 from 0100 to 11/12/2024 at 0220. Downtime documentation of patient's care, including medication administrations, has been reconciled in the electronic record per guidelines. Refer to the
patient's paper chart under the miscellaneous tab to see printed paper medication records and downtime forms.
[2024-11-12] MEDS: ZOSYN 50 IV ×3 (06:10→17:16)
[2024-11-12] MEDS: SYNTHROID 50 MCG PO (06:11)
[2024-11-12 07:43] LABS: Hematocrit 36.8 % (39.0-52.0); Hemoglobin 12.3 g/dL (13.0-18.0); Mean Corp Hgb Conc. 33.4 g/dL (33.0-37.0); Mean Corpuscular Volume 83.3 fL (80.0-94.0); Platelet Count 408 10^3/uL (130-400); Red Cell Dist. Width 13.3 % (11.5-14.5)
[2024-11-12 08:15] LABS: ALT (SGPT) 105 U/L (0-50); AST (SGOT) 40 U/L (17-59); Albumin 3.4 g/dl (3.5-5.0); Alkaline Phosphatase 353 U/L (38-126); Blood Urea Nitrogen 12 mg/dl (9-20); Calcium 8.4 mg/dl (8.4-10.2); Carbon Dioxide 23 mmol/L (22-30); Chloride 104 mmol/L (98-107); Estimated Creatinine Clearance 116 ml/min; Glucose 112 mg/dl (70-99); Potassium 4.7 mmol/L (3.5-5.1); Sodium 134 mmol/L (135-145); Total Protein 6.5 g/dl (6.3-8.2); eGFR > 60.00
--- NOTE | 2024-11-12 09:24 | W.PN.HOSP.TC ---
Today's Communication/Plan
-
Continue antibiotics
Assessment / Plan
Assessment / Plan
Mr. Sung is a 63-year-old man with a past medical history of hypertension, hyperlipidemia, hypothyroidism, testicular and prostate cancer status post right orchiectomy prostatectomy who to ED [facility] complaint of persistent fevers. He was diagnosed
with flu and pnuemonia 10 days ago. treated with tamiflu and placed on doxycycline without improvement. Ceftin was added 4 days ago due to persistent fevers and repeat xray without improvement. Today reports increasing SOB, fevers >101. Labs
reviewed. WBC 15 with left shift. Lactic normal at 1.4. Temp of 102 in ED. CXR showed atelectasis vs pneumonia. Patient was started on Vancomycin and cefepime, admit to hospitalist for pneumonia, persistent fevers, JI. In the hospital he
received IV fluid hydration and infectious disease was consulted. A respiratory pathogen panel was sent, which was negative. ID sent parasite panel which was also negative. Patient was transitioned to cefepime only. ID recommended echo and
pending CT scan. Hernandez CT scan showed rim-enhancing fluid collection in the anterior right psoas muscle, Inferiorly this abuts a multiloculated rim-enhancing fluid collection in the right external iliac chain region, probably abscess formation
particularly in the psoas muscle and adjacent necrotic lymphadenopathy, most likely source of sepsis given inconclusive chest x-ray and chest CT. IR and general surgery were consulted for possible drainage. On 11/09 patient was taken to IR for
drainage however IR was unable to drain due to lack of space and proximity to iliac vessels. Patient was continued on IV antibiotics and awaiting general surgery input. On 11/10 patient with improving white count but was still having fevers,
fatigue, and developed rash in right upper extremity adjacent to IV site.
#Sepsis due to psoas abscess
# Fever of unknown origin
# Psoas abscess
Psoas abscess likely source of unrelenting fever
Patient not improving on IV antibiotics
Hx of prostate testicular cancer
Hx of positive FIT test
IR unable to aspirate
General Surgery consult
- failed OP ABx Doxycycline, Ceftin
- WBC 15 with left shift. Lactic normal, pw increasing SOB, fevers >102 in ED
- BCx no growth
- Transitioned to IV Zosyn
- ID consult, appreciate recs
- CT chest abdomen pelvis showed abscess in right psoas muscle with necrotic lymphadenopathy
-Continue IV antibiotics
- Fever of unknown origin workup
- TREMAYNE ANCA negative
- RF negative
- Total PSA less than .1
-CPK 87
#Elevated ALT & ALKP:
2/2 to sepsis
- IV NS
- Trend LFts
- ALT 105 and alk phos 353 elevated 11/12
- Possibly due to NAFLD, viral hep, drug-induced
- Given CT findings unlikely to be biliary obstruction, thrombosis
# Rash, right upper extremity, improving
Likely contact dermatitis from adhesives
Adjacent to IV site
DDx includes cellulitis versus contact dermatitis
-Hydrocortisone cream
- Consider imaging if not improving
DVT Px:
Subcu heparin
CODE STATUS
Full code
Anticipated Discharge: 24 - 48 hours
Subjective/Interval History
-
Patient reported feeling a bit better. Had mild episode of left shoulder pain, worsened with deep breathing. He did not report any fevers yesterday, and reported decreased sweating at night. He was curious about when he could go home, told
patient I will have to discuss with ID about appropriate antibiotics for discharge. Patient reported no shortness of breath or chest pain, abdominal pain nausea or vomiting. Patient reported that he felt much better after ibuprofen yesterday and
ibuprofen works better than acetaminophen for him. Date of Service: November 12, 2024
Objective Data
-
Labs:
Laboratory Results
11/12/24
07:27
WBC 11.5 H
Hgb 12.3 L
Hct 36.8 L
Plt Count 408 H
Sodium 134 L
Potassium 4.7
Chloride 104
Carbon Dioxide 23
BUN 12
Creatinine 0.8
Glucose 112 H
Calcium 8.4
Total Bilirubin 0.7
AST 40
ALT 105 H
Alkaline Phosphatase 353 H
Vital Signs:
Vital Signs
Temp Pulse Resp BP Pulse Ox
99 F 99 16 137/89 92
11/12/24 07:59 11/12/24 07:59 11/12/24 07:59 11/12/24 07:59 11/12/24 07:59
I&O
11/11/24 11/12/24 11/13/24
06:59 06:59 06:59
Intake Total 840 / 840 580 / 580
Output Total 2800 / 2800 1350 / 1350
Balance -1960 / -1960 -770 / -770
Review of Systems
-
History Source: Patient
Constitutional: Reports Fatigue and Night Sweats; Denies Fever
EENT: Reports No Symptoms Reported; Denies Sore Throat or Runny Nose
Respiratory: Reports Pleurisy; Denies Cough, Hemoptysis, Trouble Breathing or Wheezing
Cardiac: Reports No Symptoms; Denies Chest Pain, Diaphoresis or Palpitations
Abdomen/GI: Reports No Symptoms; Denies Abdominal Pain, Nausea, Vomiting, Diarrhea or Constipated
Genitourinary: Reports No Symptoms; Denies Dysuria or Frequency
Musculoskeletal: Reports No Symptoms; Denies Joint Pain
Skin: Reports No Symptoms; Denies Itching
Neuro: Reports No Symptoms; Denies Dizzy or Headache
Physical Exam
-
General: Well Developed, Well Nourished, No Apparent Distress, Sweats and Obese
HEENT: Normocephalic and Atraumatic
Respiratory: Clear to Auscultation; Negative Wheezes, Crackles or Non Labored Respirations
Cardiac: Regular Rhythm, S1/S2 and Tachycardic; Negative Murmur
GI: Soft, Nontender, Nondistended and Normal Bowel Sounds
Musculoskeletal: No Clubbing, No Cyanosis and No Edema
Skin: Warm and Dry; Negative Rash
Neuro: Awake, Alert and Oriented
[2024-11-12] MEDS: CYANOCOBALAMIN 1000 MCG IM (09:54)
[2024-11-12] MEDS: PROTONIX 20 MG PO (09:54)
[2024-11-12] MEDS: HYDROCORTISONE 2.5% OINTMENT 1 APPLIC TOPICAL ×2 (09:54→19:27)
--- NOTE | 2024-11-12 12:17 | W.PN.ID1 ---
Date of Service
Date of Service: November 12, 2024
Today's Communication
- Continue Zosyn
-At time of discharge, transition to empiric Levofloxacin 750mg po daily and metronidazole 500mg po bid 3 more weeks.
- Repeat CT a/p in 2 weeks.
Assessment / Plan
# Right psoas suspected abscess with adjacent necrotic lymphadenopathy
# Fever resolved
# Leukocytosis; improving
# Elevated ALT
- Symptoms did not respond to 10 days doxycycline nor 5 days of oseltamivir (outpatient)
- CXR: atelectasis
- SARS/Flu neg
- Parasite smear x 2 negative
- Blood cx's neg to date.
- TTE without valvular disease. No vegetation noted.
- CT of the abdomen suggested right psoas muscle abscess with adjacent necrotic lymphadenopathy.
IR Aspiration unsuccessful.
No surgical intervention, per Surgery.
- Continue Zosyn
- At time of discharge, transition to empiric Levofloxacin 750mg po daily and metronidazole 500mg po bid [address]
Re[address] a/p in 2 weeks.
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
Hypertension
hx prostate ca s/p prostatectomy
Hx testicular ca s/p right orchiectomy
Hx inguinal hernia repari
Chief Complaint
-: Fever
Subjective / Review of Systems
Feeling better.
Vital Signs / Physical Exam
Vital Signs
Vital Signs
Temp Pulse Resp BP Pulse Ox
99 F 99 16 137/89 92
11/12/24 07:59 11/12/24 07:59 11/12/24 07:59 11/12/24 07:59 11/12/24 07:59
Physical Exam
Constitutional: No Acute Distress and Comfortable
Cardiovascular: Regular Rate and S1/S2
Pulmonary: Clear
Gastrointestinal: Soft, Non Tender and Non Distended
Neurological: AO x 3
Objective Data
Lab Data
Lab Results
11/12/24 07:27
11/12/24 07:27
ESR 89 mm/hour (0-20) H 11/08/24 13:27
Estimated Creat Clear 116 ml/min 11/12/24 07:27
Lactic Acid 1.4 mmol/L (0.7-2.0) 11/06/24 20:13
Total Bilirubin 0.7 mg/dl (0.2-1.3) 11/12/24 07:27
AST 40 U/L (17-59) 11/12/24 07:27
ALT 105 U/L (0-50) H 11/12/24 07:27
Alkaline Phosphatase 353 U/L (38-126) H 11/12/24 07:27
C-Reactive Protein 207.80 mg/L (0.0-10.00) H 11/08/24 13:27
Most recent labs reviewed.
Micro Results:
11/06/24 20:13 Blood Culture - Final
Blood/Venous No Growth - Final Report
11/06/24 17:34 Blood Culture - Final
Blood/Venous No Growth - Final Report
11/08/24 06:33 Blood Parasites Smear - Final
Blood/Venous
11/06/24 22:08 MRSA Screen - Final
Nose No Methicillin Resistant Staphylococcus aureus isolated.
11/06/24 22:08 Nasal Screen MRSA (PCR) - Final
Nose
11/07/24 12:23 Blood Parasites Smear - Final
Blood/Venous
11/07/24 11:11 Influenza Types A & B (SHANEL) - Final
Nasal Swab Negative for Influenza A & B, NAAT
Negative results must be combined with clinical observations
and patient history.
Nucleic Acid Amplification test (NAAT)performed on the
[employer] platform.
11/07/24 00:52 Legionella Urinary Antigen - Final
Urine Negative for Legionella pneumophila Serogroup 1 antigen.
A negative result does not rule out the possiblity of
Legionella infection due to other serogroups or species of
Legionella. Clinical correlation is recommended.
11/07/24 00:52 Streptococcus pneumoniae Antigen (M - Final
Urine Negative for Streptococcus pneumoniae antigen.
A negative result does not exclude infection with
Streptococcus pneumoniae. Clinical correlation is
recommended.
11/08/24 CT C/A/P: Findings suggesting probable intramuscular abscess formation of the right psoas muscle with adjacent necrotic lymphadenopathy inferiorly
11/06/24 CXR: Mild bibasilar opacities which are favored to represent atelectasis, however pneumonia cannot be excluded.
Care Review
Plan reviewed with: Physician (Dr. Campos)
[2024-11-12 13:06] LABS: Glucose - Point of Care 93 mg/dl (70-99)
--- NOTE | 2024-11-12 13:15 | PTCARENOTE ---
Patient had been cooperative and was assisted out of bed to chair by PT. Patient initially felt well, looked great sitting up in chair. Had been in chair for approximately 45 minutes before this RN went in to hang his IV Antibiotic. Prior to
hanging, IV leaking/removed. Left to grab more supplies and on my return the patient was diaphoretic, pale and stated 'I feel like I'm going to pass out.' With assistance from other staff, assisted patient back into bed. Patient remained awake
during this period of time. Vitals obtained, hemodynamically stable. Patient felt much better once back in bed. Notified attending provider.
[2024-11-12 16:52] LABS: Serine Protease-3, IgG 3 AU/mL (0-19)
[2024-11-12] MEDS: LOVENOX 40 MG SC (17:16)
[2024-11-12] MEDS: ZESTRIL 10 MG PO (22:06)
[2024-11-12] MEDS: NORVASC 5 MG PO (22:06)
[2024-11-13] MEDS: ZOSYN 50 IV ×2 (00:16→05:47)
[2024-11-13] MEDS: SYNTHROID 50 MCG PO (05:47)
[2024-11-13 07:34] LABS: Hematocrit 37.2 % (39.0-52.0); Hemoglobin 12.4 g/dL (13.0-18.0); Mean Corp Hgb Conc. 33.3 g/dL (33.0-37.0); Mean Corpuscular Volume 83.6 fL (80.0-94.0); Platelet Count 466 10^3/uL (130-400); Red Cell Dist. Width 13.3 % (11.5-14.5)
[2024-11-13 07:50] VITALS: BP 131/80
[2024-11-13 08:01] LABS: ALT (SGPT) 91 U/L (0-50); AST (SGOT) 34 U/L (17-59); Albumin 3.5 g/dl (3.5-5.0); Alkaline Phosphatase 318 U/L (38-126); Blood Urea Nitrogen 13 mg/dl (9-20); Calcium 8.8 mg/dl (8.4-10.2); Carbon Dioxide 24 mmol/L (22-30); Chloride 105 mmol/L (98-107); Estimated Creatinine Clearance 103 ml/min; Glucose 115 mg/dl (70-99); Potassium 4.9 mmol/L (3.5-5.1); Sodium 136 mmol/L (135-145); Total Protein 6.7 g/dl (6.3-8.2); eGFR > 60.00
[2024-11-13] MEDS: VISBIOME 2 CAP PO (09:10)
[2024-11-13] MEDS: PROTONIX 20 MG PO (09:11)
[2024-11-13] MEDS: CYANOCOBALAMIN 1000 MCG IM (09:11)
[2024-11-13] MEDS: LEVAQUIN 750 MG PO (09:11)
[2024-11-13] MEDS: HYDROCORTISONE 2.5% OINTMENT 1 APPLIC TOPICAL (09:11)
[2024-11-13] MEDS: FLAGYL 500 MG PO (09:11)
--- NOTE | 2024-11-13 09:36 | W.PN.HOSP.TC ---
Today's Communication/Plan
-
Continue IV antibiotics
Transition to p.o. antibiotics at discharge
Assessment / Plan
Assessment / Plan
Mr. Sung is a 63-year-old man with a past medical history of hypertension, hyperlipidemia, hypothyroidism, testicular and prostate cancer status post right orchiectomy prostatectomy who to ED wtih complaint of persistent fevers. He was diagnosed
with flu and pnuemonia 10 days ago. treated with tamiflu and placed on doxycycline without improvement. Ceftin was added 4 days ago due to persistent fevers and repeat xray without improvement. Today reports increasing SOB, fevers >101. Labs
reviewed. WBC 15 with left shift. Lactic normal at 1.4. Temp of 102 in ED. CXR showed atelectasis vs pneumonia. Patient was started on Vancomycin and cefepime, admit to hospitalist for pneumonia, persistent fevers, JI. In the hospital he
received IV fluid hydration and infectious disease was consulted. A respiratory pathogen panel was sent, which was negative. ID sent parasite panel which was also negative. Patient was transitioned to cefepime only. ID recommended echo and
pending CT scan. Hernandez CT scan showed rim-enhancing fluid collection in the anterior right psoas muscle, Inferiorly this abuts a multiloculated rim-enhancing fluid collection in the right external iliac chain region, probably abscess formation
particularly in the psoas muscle and adjacent necrotic lymphadenopathy, most likely source of sepsis given inconclusive chest x-ray and chest CT. IR and general surgery were consulted for possible drainage. On 11/09 patient was taken to IR for
drainage however IR was unable to drain due to lack of space and proximity to iliac vessels. Patient was continued on IV antibiotics and awaiting general surgery input. On 11/10 patient with improving white count but was still having fevers,
fatigue, and developed rash in right upper extremity adjacent to IV site. Rash resolved with hydrocortisone cream. Patient developed some achy pain on left arm that traveled proximately to chest, patient did not report any chest pressure, EKG x 2
was negative. Chest x-ray was nonconclusive with mild bilateral pleural effusions with right side greater than left. Continued patient on IV antibiotics which were switched to Zosyn. General surgery provided input with no plans for surgery due to
limited space and invasive nature. Recommended continuation of IV antibiotics. Patient slowly improving, had couple days without fevers and was able to work with PT to regain his strength.
#Sepsis due to psoas abscess
# Fever of unknown origin
# Psoas abscess
Psoas abscess likely source of unrelenting fever
Patient not improving on IV antibiotics
Hx of prostate testicular cancer
Hx of positive FIT test
IR unable to aspirate
General Surgery consult
- failed OP ABx Doxycycline, Ceftin
- WBC 15 with left shift. Lactic normal, pw increasing SOB, fevers >102 in ED
- BCx no growth
- Transitioned to IV Zosyn
- ID consult, appreciate recs
- CT chest abdomen pelvis showed abscess in right psoas muscle with necrotic lymphadenopathy
- Continue IV antibiotics
- At time of discharge, transition to empiric Levofloxacin 750mg po daily and metronidazole 500mg po bid 3 more weeks.
- Repeat CT a/p in 2 weeks.
#Elevated ALT & ALKP:
2/2 to sepsis
- IV NS
- Trend LFts
- ALT 105 and alk phos 353 elevated 11/12
- Possibly due to NAFLD, viral hep, drug-induced
- Given CT findings unlikely to be biliary obstruction, thrombosis
# Rash, right upper extremity, improving
Likely contact dermatitis from adhesives
Adjacent to IV site
DDx includes cellulitis versus contact dermatitis
-Hydrocortisone cream
- Consider imaging if not improving
DVT Px:
Subcu heparin
CODE STATUS
Full code
Anticipated Discharge: Within 24 hours
Subjective/Interval History
-
Patient reports he is feeling much better. He reported not having a fever yesterday and mild sweating at night. His achy left shoulder has abated. He has not required Tylenol or ibuprofen. He has shortness of breath or chest pain and mild
occasional abdominal pain that is 1 out of 10. He was able to work with PT yesterday. Date of Service: November 13, 2024
Objective Data
-
Labs:
Laboratory Results
11/13/24
07:15
WBC 12.0 H
Hgb 12.4 L
Hct 37.2 L
Plt Count 466 H
Sodium 136
Potassium 4.9
Chloride 105
Carbon Dioxide 24
BUN 13
Creatinine 0.9
Glucose 115 H
Calcium 8.8
Total Bilirubin 0.5
AST 34
ALT 91 H
Alkaline Phosphatase 318 H
Vital Signs:
Vital Signs
Temp Pulse Resp BP Pulse Ox
97.6 F 84 16 131/80 94
11/13/24 07:50 11/13/24 07:50 11/13/24 07:50 11/13/24 07:50 11/13/24 07:50
I&O
11/12/24 11/13/24 11/14/24
06:59 06:59 06:59
Intake Total 580 / 580 340 / 340
Output Total 1350 / 1350 1650 / 1650
Balance -770 / -770 -1310 / -1310
Review of Systems
-
History Source: Patient
Constitutional: Reports No Symptoms and Fatigue; Denies Fever or Chills
EENT: Reports No Symptoms Reported; Denies Sore Throat or Runny Nose
Respiratory: Reports No Symptoms; Denies Cough, Trouble Breathing or Wheezing
Cardiac: Reports No Symptoms; Denies Chest Pain
Abdomen/GI: Reports Abdominal Pain (05/03); Denies Nausea or Vomiting
Breast: Reports No Symptoms
Genitourinary: Reports No Symptoms; Denies Dysuria
Musculoskeletal: Reports No Symptoms; Denies Joint Pain
Skin: Reports No Symptoms; Denies Itching
Neuro: Reports No Symptoms; Denies Dizzy or Headache
Physical Exam
-
General: Well Developed, Well Nourished and No Apparent Distress
HEENT: Normocephalic and Atraumatic
Respiratory: Clear to Auscultation and Rhonchi; Negative Wheezes or Crackles
Cardiac: Regular Rhythm and S1/S2; Negative Murmur
GI: Soft, Nontender, Nondistended and Normal Bowel Sounds
Musculoskeletal: No Clubbing, No Cyanosis and No Edema
Skin: Warm and Dry; Negative Rash
Neuro: Awake, Alert and Oriented
--- NOTE | 2024-11-13 12:15 | W.PN.ID1 ---
Date of Service
Date of Service: November 13, 2024
Today's Communication
- Transition Zosyn to empiric Levofloxacin 750mg po daily and metronidazole 500mg po bid 3 more weeks.
- Repeat CT a/p in 2 weeks.
- Follow-up with me in 2 weeks.
- Pt needs PCP.
Assessment / Plan
# Right psoas suspected abscess with adjacent necrotic lymphadenopathy
# Fever resolved
# Leukocytosis; improving
# Elevated ALT
- Symptoms did not respond to 10 days doxycycline nor 5 days of oseltamivir (outpatient)
- CXR: atelectasis
- SARS/Flu neg
- Parasite smear x 2 negative
- Blood cx's neg to date.
- TTE without valvular disease. No vegetation noted.
- CT of the abdomen suggested right psoas muscle abscess with adjacent necrotic lymphadenopathy.
IR Aspiration unsuccessful.
No surgical intervention, per Surgery.
- Transition Zosyn to empiric Levofloxacin 750mg po daily and metronidazole 500mg po bid [address]
Re[address] a/p in 2 weeks.
- Follow-up with me in 2 weeks.
- Pt needs PCP.
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
Hypertension
hx prostate ca s/p prostatectomy
Hx testicular ca s/p right orchiectomy
Hx inguinal hernia repari
Chief Complaint
-: Fever
Subjective / Review of Systems
Feels tired.
Vital Signs / Physical Exam
Vital Signs
Vital Signs
Temp Pulse Resp BP Pulse Ox
97.6 F 84 16 131/80 94
11/13/24 07:50 11/13/24 07:50 11/13/24 07:50 11/13/24 07:50 11/13/24 07:50
Physical Exam
Constitutional: Comfortable
Eyes: No Conjunctival Hemorrhage and Sclera Anicteric
Cardiovascular: Regular Rate and S1/S2
Pulmonary: Clear
Gastrointestinal: Soft, Non Tender, Non Distended and Normal Bowel Sounds
Neurological: AO x 3
Objective Data
Lab Data
Lab Results
11/13/24 07:15
11/13/24 07:15
ESR 89 mm/hour (0-20) H 11/08/24 13:27
Estimated Creat Clear 103 ml/min 11/13/24 07:15
Lactic Acid 1.4 mmol/L (0.7-2.0) 11/06/24 20:13
Total Bilirubin 0.5 mg/dl (0.2-1.3) 11/13/24 07:15
AST 34 U/L (17-59) 11/13/24 07:15
ALT 91 U/L (0-50) H 11/13/24 07:15
Alkaline Phosphatase 318 U/L (38-126) H 11/13/24 07:15
C-Reactive Protein 207.80 mg/L (0.0-10.00) H 11/08/24 13:27
Most recent labs reviewed.
Micro Results:
11/06/24 20:13 Blood Culture - Final
Blood/Venous No Growth - Final Report
11/06/24 17:34 Blood Culture - Final
Blood/Venous No Growth - Final Report
11/08/24 06:33 Blood Parasites Smear - Final
Blood/Venous
11/06/24 22:08 MRSA Screen - Final
Nose No Methicillin Resistant Staphylococcus aureus isolated.
11/06/24 22:08 Nasal Screen MRSA (PCR) - Final
Nose
11/07/24 12:23 Blood Parasites Smear - Final
Blood/Venous
11/07/24 11:11 Influenza Types A & B (SHANEL) - Final
Nasal Swab Negative for Influenza A & B, NAAT
Negative results must be combined with clinical observations
and patient history.
Nucleic Acid Amplification test (NAAT)performed on the
[employer] platform.
11/07/24 00:52 Legionella Urinary Antigen - Final
Urine Negative for Legionella pneumophila Serogroup 1 antigen.
A negative result does not rule out the possiblity of
Legionella infection due to other serogroups or species of
Legionella. Clinical correlation is recommended.
11/07/24 00:52 Streptococcus pneumoniae Antigen (M - Final
Urine Negative for Streptococcus pneumoniae antigen.
A negative result does not exclude infection with
Streptococcus pneumoniae. Clinical correlation is
recommended.
11/08/24 CT C/A/P: Findings suggesting probable intramuscular abscess formation of the right psoas muscle with adjacent necrotic lymphadenopathy inferiorly
11/06/24 CXR: Mild bibasilar opacities which are favored to represent atelectasis, however pneumonia cannot be excluded.
--- NOTE | 2024-11-13 12:54 | CM ---
Met with patient at bedside. Possible DC today.Pt receptive to HH; known to [facility], referral sent. IV ABX d/c'd, now on PO ABX
Plan: Home with [facility]
Fax;[phone]
--- NOTE | 2024-11-13 14:24 | W.DCSUMMARY ---
Documented by User: Leonela May MD, Resident 11/13/24 14:31
Discharge Summary
Discharge Data
Date of Admission: 11/06/24
Date of Discharge: 11/13/24
-
Pending Results: No
Hospital Course
Discharging Physician : Dr. Campos, Dr. May
Disposition : Home
Primary care physician : Yocasta Santana
Principal Discharge diagnosis : Sepsis secondary to abscesses of the right psoas muscle
Chronic Discharge diagnosis :
hypertension
hypercholesterolemia
hypothyroidism
Hx Prostate Cancer
Hx testicular cancer
Hospital Course :
Mr. Sung is a 63-year-old man with a past medical history of hypertension, hyperlipidemia, hypothyroidism, testicular and prostate cancer status post right orchiectomy prostatectomy who to ED wtih complaint of persistent fevers. He was diagnosed
with flu and pnuemonia 10 days ago. treated with tamiflu and placed on doxycycline without improvement. Ceftin was added 4 days ago due to persistent fevers and repeat xray without improvement. Today reports increasing SOB, fevers >101. Labs
reviewed. WBC 15 with left shift. Lactic normal at 1.4. Temp of 102 in ED. CXR showed atelectasis vs pneumonia. Patient was started on Vancomycin and cefepime, admit to hospitalist for pneumonia, persistent fevers, JI. In the hospital he
received IV fluid hydration and infectious disease was consulted. A respiratory pathogen panel was sent, which was negative. ID sent parasite panel which was also negative. Patient was transitioned to cefepime only. ID recommended echo and
pending CT scan. Hernandez CT scan showed rim-enhancing fluid collection in the anterior right psoas muscle, Inferiorly this abuts a multiloculated rim-enhancing fluid collection in the right external iliac chain region, probably abscess formation
particularly in the psoas muscle and adjacent necrotic lymphadenopathy, most likely source of sepsis given inconclusive chest x-ray and chest CT. IR and general surgery were consulted for possible drainage. On 11/09 patient was taken to IR for
drainage however IR was unable to drain due to lack of space and proximity to iliac vessels. Patient was continued on IV antibiotics and awaiting general surgery input. On 11/10 patient with improving white count but was still having fevers,
fatigue, and developed rash in right upper extremity adjacent to IV site. Rash resolved with hydrocortisone cream. Patient developed some achy pain on left arm that traveled proximately to chest, patient did not report any chest pressure, EKG x 2
was negative. Chest x-ray was nonconclusive with mild bilateral pleural effusions with right side greater than left. Continued patient on IV antibiotics which were switched to Zosyn. General surgery provided input with no plans for surgery due to
limited space and invasive nature. Recommended continuation of IV antibiotics. Patient slowly improving, had couple days without fevers and was able to work with PT to regain his strength. AFVSS this morning 11/13. Denies fevers or chills, chest
pain, shortness of breath at the time of my eval, AAO x 4, no FND, NAD. Appears weak and deconditioned. Cardiopulmonary exam benign. Abdomen exam benign. No edema, palpable pulses, warm and dry skin. Patient medically stable for discharge.
Transition to levofloxacin 750 mg daily, Flagyl 500 mg 2 times daily for 3 more weeks. Will plan for OP CT A/P with IV contrast in 2 weeks. Will need to follow-up closely with PCP and infectious disease.
Important imaging findings :
Chest x-ray 11/06
IMPRESSION:
Mild bibasilar opacities which are favored to represent atelectasis, however pneumonia cannot be excluded.
CT chest abdomen pelvis 11/08
IMPRESSION: Findings suggesting probable intramuscular abscess formation of the right psoas muscle with adjacent necrotic lymphadenopathy inferiorly .See above. Clinical and laboratory correlation recommended.
Moderate fecal material in the colon.
Moderate bibasilar atelectasis versus scarring.
Moderate fecal material in the colon.
Mild diverticulosis.
Mild diffuse bladder wall thickening.
Chest x-ray 11/11
IMPRESSION:
Tiny bilateral pleural effusions. New on the right. Stable on the left.
Moderate right lower lobe atelectasis versus pneumonia. New
Probable mild left lower lobe pneumonia. New
Mild elevation of the right hemidiaphragm. New
Procedure findings :
Percutaneous abscess drainage 11/09
IMPRESSION:
Unsuccessful CT guided drainage of right pelvic sidewall collection.
Discharge Plan
-
Patient Disposition: Home (Routine Discharge)
Discharge Diagnosis/Procedures: Sepsis secondary to abscesses of the right psoas muscle
Condition: Fair
Diet: No restrictions
Activity: As tolerated and With Walker
Driving Restrictions: Not until seen by your Dr
Bathing Restrictions: None
Blood Work: Follow-up in office with PCP within 1 to 2 weeks for labs (BMP, CBC)
Others Tests: CT A/P with IV contrast 2 weeks after discharge, prescription provided, call to schedule
Other Services: VN and PT
Referrals:
Yocatsa Santana DO [Family Provider, Internal Medicine] - in less than 1 week
Jovana Rhoades DO, Resident [Family Practice Resident Year1, General] - in two weeks
Bee Chambers MD [Active, Infectious Diseases] - in two weeks
Additional Discharge Medication Instructions: Continue levofloxacin 750 mg daily and metronidazole 500 mg every 12 hours for 3 more weeks after being discharged from the hospital.
Prescriptions:
New
metronidazole 500 mg Tablet
500 mg PO BID Qty: 42 0RF
levofloxacin 750 mg Tablet
750 mg PO DAILY Qty: 21 0RF
B12 5,000-100 mcg lozenge
1,000 nuno sublingual QID Qty: 30 0RF
Continued
amlodipine 5 mg Tablet
5 mg PO HS
acetaminophen [Tylenol Extra Strength] 500 mg Tablet
1,000 mg PO DAILYPRN PRN (Reason: mild pain/fever)
levothyroxine 50 mcg Tablet
50 mcg PO DAILY
lisinopril 10 mg Tablet
10 mg PO HS
ibuprofen 200 mg Tablet
600 mg PO Q6HPRN PRN (Reason: mild pain/fever)
tadalafil 5 mg Tablet
5 mg PO DAILY
Discontinued
doxycycline hyclate 100 mg Capsule
100 mg PO BID
Patient Comments:
11/06/2024, filled on 10/30/2024 and instructed to take 1 capsule BID for 7 days; pt. has one capsule left to take tonight to complete regimen per pt.
cefuroxime axetil 250 mg tablet
250 mg PO BID
Patient Comments:
11/06/2024, filled on 11/03/2024 and instructed to take 1 tablet BID for 7 days.
Discharge Orders:
Discharge Patient (As Directed); Ordered 11/13/24
Ordered By: Leonela May
Discharge Date and Time
Discharge Date/Time: 11/13/24 18:48
Print Language: SRI LANKAN

Documented by User: Sae Campos DO 11/14/24 11:33
Discharge Summary
Discharge Data
Date of Admission: 11/06/24
Date of Discharge: 11/13/24
Total time spent discharging patient (in min): 32
Discharge Plan
-
Patient Disposition: Home (Routine Discharge)
Discharge Diagnosis/Procedures: Sepsis secondary to abscesses of the right psoas muscle
Condition: Fair
Diet: No restrictions
Activity: As tolerated and With Walker
Driving Restrictions: Not until seen by your Dr
Bathing Restrictions: None
Blood Work: Follow-up in office with PCP within 1 to 2 weeks for labs (BMP, CBC)
Others Tests: CT A/P with IV contrast 2 weeks after discharge, prescription provided, call to schedule
Other Services: VN and PT
Referrals:
Yocasta Santana DO [Family Provider, Internal Medicine] - in less than 1 week
Jovana Rhoades DO, Resident [Family Practice Resident Year1, General] - in two weeks
Bee Chambers MD [Active, Infectious Diseases] - in two weeks
Additional Discharge Medication Instructions: Continue levofloxacin 750 mg daily and metronidazole 500 mg every 12 hours for 3 more weeks after being discharged from the hospital.
Prescriptions:
New
metronidazole 500 mg Tablet
500 mg PO BID Qty: 42 0RF
levofloxacin 750 mg Tablet
750 mg PO DAILY Qty: 21 0RF
B12 5,000-100 mcg lozenge
1,000 nuno sublingual QID Qty: 30 0RF
Continued
amlodipine 5 mg Tablet
5 mg PO HS
acetaminophen [Tylenol Extra Strength] 500 mg Tablet
1,000 mg PO DAILYPRN PRN (Reason: mild pain/fever)
levothyroxine 50 mcg Tablet
50 mcg PO DAILY
lisinopril 10 mg Tablet
10 mg PO HS
ibuprofen 200 mg Tablet
600 mg PO Q6HPRN PRN (Reason: mild pain/fever)
tadalafil 5 mg Tablet
5 mg PO DAILY
Discontinued
doxycycline hyclate 100 mg Capsule
100 mg PO BID
Patient Comments:
11/06/2024, filled on 10/30/2024 and instructed to take 1 capsule BID for 7 days; pt. has one capsule left to take tonight to complete regimen per pt.
cefuroxime axetil 250 mg tablet
250 mg PO BID
Patient Comments:
11/06/2024, filled on 11/03/2024 and instructed to take 1 tablet BID for 7 days.
Discharge Orders:
Discharge Patient (As Directed); Ordered 11/13/24
Ordered By: Leonela May
Discharge Date and Time
Discharge Date/Time: 11/13/24 18:48
Print Language: SRI LANKAN
[2024-11-13 15:40] VITALS: BP 139/83
[2024-11-13] MEDS: LOVENOX SC (17:37)
== END 2024-11-13 18:48 | disposition home health service (06) | DRG 871 ==
LOC: 4 EAST ACU 22:30
PROVIDERS: Nurse Practitioner; Nurse Practitioner Family; Student in an Organized Health Care Education/Training Program; ADMITTING PHYSICIAN Internal Medicine; ATTENDING PHYSICIAN Internal Medicine; CONSULT PHYSICIAN Surgery; EMERGENCY PHYSICIAN Emergency Medicine; FAMILY PHYSICIAN Internal Medicine; OTHER PHYSICIAN Internal Medicine Infectious Disease
DX: A41.9 Sepsis, unspecified organism (principal); K68.12 Psoas muscle abscess; J98.11 Atelectasis; J90 Pleural effusion, not elsewhere classified; E78.00 Pure hypercholesterolemia, unspecified; E03.9 Hypothyroidism, unspecified; Z85.46 Personal history of malignant neoplasm of prostate; Z85.47 Personal history of malignant neoplasm of testis; I11.9 Hypertensive heart disease without heart failure; Z79.890 Hormone replacement therapy; Z90.79 Acquired absence of other genital organ(s); Z11.52 Encounter for screening for COVID-19
CPT/HCPCS: 49406; 71045; 71046; 71260; 74177; 80053; 82550; 82607; 82728; 82746; 82962; 83516; 83605; 84145; 84153; 84154; 85025; 85027; 85652; 86038; 86140; 86430; 87015; 87040; 87070; 87207; 87449; 87502; 87641; 87811; 87899; 93005; 93306; 96361; 96374; 96375; 97163; 97167; 99152; 99285; Q9967

== ENCOUNTER 2024-11-28 22:44 | Inpatient (IN) | payer BC, SELFPAY ==
[2024-11-28] VITALS (13 sets, daily range): BP systolic 120–158; BP diastolic 76–97; BMI 31.3
[2024-11-28 18:28] LABS: Hematocrit 38.2 % (39.0-52.0); Hemoglobin 12.4 g/dL (13.0-18.0); Mean Corp Hgb Conc. 32.5 g/dL (33.0-37.0); Mean Corpuscular Volume 84.9 fL (80.0-94.0); Nucleated Red Blood Cells % 0 % (-); Platelet Count 281 10^3/uL (130-400); Red Cell Dist. Width 14.4 % (11.5-14.5)
--- NOTE | 2024-11-28 18:32 | ED.GENMED ---
History of Present Illness
General
Chief Complaint: Chest Pain
Source: patient
Exam Limitations: none
Time Seen by Provider: 11/28/24 18:11
Nursing documentation reviewed up to this point in time: agreed with
History of Present Illness
History of Present Illness:
63-year-old male with a past medical history of hypertension and hyperlipidemia who presents to the emergency room with his for evaluation of fever and chest pain. Patient notably had a recent complicated hospitalization here�he presented 11/06
and was admitted until 11/13. He initially was diagnosed with the flu in early October, subsequently developed pneumonia was treated with antibiotics as an outpatient; was having persistent fevers and presented to the emergency room at which time he
was admitted on IV antibiotics. Despite this was having persistent fevers, seen in consultation with infectious disease and ultimately had a CT chest/abdomen/pelvis as well as a TTE. CT diagnosed right psoas abscess which they were not able to
drain ultimately opted to treat with antibiotics for prolonged course�plan was for 3-week course of levofloxacin and metronidazole.
He says that he had been generally improving since discharge feeling a bit better every day until last night when he started to have some shoulder pain and ultimately developed chest pain which has been persistent since then. He says he has a sharp
pain that is worse with movement and worse with breathing. Today he was feeling increasing fatigue and some shortness of breath. He had a follow-up CT scan scheduled today to evaluate the psoas abscess which he went to despite his symptoms.
Afterwards he says he developed a fever again which is the first time since he was in the hospital�teerature 100.9 �F. Came back to the emergency room for assessment. He denies any abdominal pain. He denies any coughing. He denies any other
acute issues.
Past History
Past History
ED Past Medical History: HTN, Hypercholesterolemia and Hypothyroidism
Social History
Tobacco: Non-smoker
Alcohol: None
Drug: None
Review of Systems
Review of Systems
All Other Systems: ROS reviewed and negative except as documented in HPI and ROS
Constitutional: Reports fever, fatigue and chills
EENT: Denies sore throat or runny nose
Respiratory: Reports trouble breathing; Denies cough
Cardiac: Reports chest pain
ABD/GI: Denies abdominal pain, nausea, vomiting or diarrhea
: Denies flank pain
Musculoskeletal: Denies neck pain or back pain
Neurological: Denies headache
Phy Exam
Physical Exam
Physical Exam:
General: Awake, alert, mildly diaphoretic
Head: Normocephalic, atraumatic
Eyes: Conjunctiva normal, sclera anicteric
Throat: Airway intact, handling secretions
Neck: Trachea midline, supple without meningismus
Lungs: Clear to auscultation bilaterally, no wheezing, rales, rhonchi
Heart: Tachycardia with regular rhythm, no murmurs, gallops, or rubs
Abd: Soft, non distended, nontender to deep palpation
Neuro: No gross deficits
Skin: Mildly diaphoretic, warm, no rash
Extremities: No edema in extremities, equal pulses in all extremities
Scores
Heart Failure Risk
Heart Failure Risk Score: Not Applicable
Heart Score for Chest Pain Patients
STEMI patient?: Not applicable
Withdrawal Assessment of Alcohol
Withdrawal Assessment Completed?: Not applicable
Course
Orders/Labs/Results
Orders:
Orders
11/28/24 17:44
Electrocardiogram (*1) Urgent
Reason for Study: Chest Pain
EKG- Treatment ONCE
11/28/24 18:16
Complete Blood Count/With Diff Urgent
Comprehensive Metabolic Panel Urgent
Lactic Acid Q4H
Comment: WITH 1ST SET OF BLOOD CULTURES,CANCEL 2ND LACTIC ACID IF FIRST <2
Troponin I Urgent
11/28/24 18:30
CT Chest PE Study Urgent
Comment:
Reason For Exam: chest pain
11/28/24 18:31
0.9% Sodium Chloride 1000 ml [Nss] 1,000 ml IV BOLUS
Ibuprofen [Motrin] 400 mg PO NOW STA
11/28/24 18:38
Blood Culture Q30M
DEMI Source: Blood/Venous
Specimen Description:
Blood Culture Q30M
DEMI Source: Blood/Venous
Specimen Description:
11/28/24 21:10
Troponin I Urgent
11/28/24 21:13
Urine Culture Reflexed from UA [Urinalysis Reflex To Culture] Urgent
Date Specimen was Collected: 11/28/24
Time Specimen was Collected: 21:13
Abnormal Lab Results
11/28/24
18:16
WBC 11.2 H 10^3/uL
(4.8-10.8)
RBC 4.50 L 10^6/uL
(4.70-6.10)
Hgb 12.4 L g/dL
(13.0-18.0)
Hct 38.2 L %
(39.0-52.0)
MCHC 32.5 L g/dL
(33.0-37.0)
Abs Immat Gran (auto) 0.1 H 10^3/uL
(0-0.05)
Absolute Neuts (auto) 8.4 H 10^3/uL
(1.4-6.5)
Absolute Monos (auto) 0.9 H 10^3/uL
(0.1-0.6)
Lymphocytes % 14.3 L %
(20.5-51.1)
Glucose 130 H mg/dl
(70-99)
11/28/24 18:16
11/28/24 18:16
Vital Signs
Initial and Last Documented VS:
Initial Vital Signs
Temp Pulse Resp BP Pulse Ox
37.4 C 127 18 158/97 97
11/28/24 17:53 11/28/24 17:53 11/28/24 17:53 11/28/24 17:53 11/28/24 17:53
Last Documented Vital Signs
Temp Pulse Resp BP Pulse Ox
37.6 C 112 20 143/88 93
11/28/24 20:43 11/28/24 20:43 11/28/24 20:43 11/28/24 20:43 11/28/24 20:43
MDM/Problems Addressed
Differential Diagnosis Includes:
Pneumonia, pneumothorax, PE, pericarditis, pericardial effusion
MDM/Problems Addressed:
63-year-old male presents to the ER for evaluation of chest pain and fever started last night�recent complicated hospitalization for fever of unknown origin that ultimately resulted in diagnosis of psoas abscess treated with antibiotics but not
drainage. He is tachycardic and febrile here, mildly hypertensive. Physical exam as above. I did review CT scan which was done earlier today to follow-up on psoas abscess and it appears that the abscess has improved although they did note
incidental mild to moderate pericardial effusion. Will send for dedicated CT of the chest both to rule out PE given his recent hospitalization and chest pain/shortness of breath as well as to better evaluate the rest of his chest including
effusion. Will send labs including a CBC and a CMP, lactate and blood cultures. Check troponin. Will provide Tylenol and fluids. Monitor very closely and reassess after the above.
Labs reviewed: CBC shows mild leukocytosis, marginal anemia. CMP no clinically significant abnormalities. Lactate less than 2. Initial troponin negative. Will repeat. CT chest shows no PE. No signs of pneumonia. There is a pericardial
effusion with signs consistent with pericarditis and I think that fits with his clinical picture. He is having continued chest pain and tachycardia but has been normotensive. Will admit for monitoring of vital signs, trending of troponin.
Consideration for repeat echocardiogram. Discussed case with hospitalist for admission.
Acute Exacerbation and/or Progression of Chronic Illness: HTN
*Radiology
Radiology exam reviewed: radiology read reviewed
*Pulse Oximetry
SaO2: 97
Oxygen Mode of Delivery: Room air
Patient hypoxic: no (97%)
*EKG
Interpreted by ED Provider?: Yes
Heart Rate: 117
Rate: tachycardiac
Rhythm: sinus and sinus tachycardia
Elizabeth: normal axis
Interval: normal interval
QRS Pattern: normal QRS
Ischemia: non-specific ST changes
*Critical Care Note
Total Time (30-74mins, 75-104mins- exclusive of procedures): Not Applicable
Data Reviewed
Review of Other/Old Records Reveals: Labs, Records, Radiology Studies, Progress Notes and Discharge Summary
Source: patient, records and spouse
Patient Management
Discussion with other providers: Hospitalist (Discussed with hospitalist)
Escalation/DeEscalation of care consider admission/obs:
Admission indicated
ED Attending Note
-
Portions of this chart may have been created with voice recognition software.� Occasional wrong word or��sound alike� substitutions may have occurred due to the inherent limitations of voice recognition software.
Discharge Plan
Departure
Patient Disposition: Admit
Date of Disposition: 11/28/24
Time of Disposition: 21:18
Admit to doctor: Esteban
Presentation/result/management discussed w/ accepting MD/DO: Hospitalist
Discharge Problem:
Pericarditis, Pericardial effusion, Chest pain
Prescriptions:
No Action
amlodipine 5 mg Tablet
5 mg PO HS
levothyroxine 50 mcg Tablet
50 mcg PO DAILY
lisinopril 10 mg Tablet
10 mg PO HS
ibuprofen 200 mg Tablet
600 mg PO Q6HPRN PRN (Reason: mild pain/fever)
tadalafil 5 mg Tablet
5 mg PO DAILY
metronidazole 500 mg Tablet
500 mg PO BID Qty: 42 0RF
levofloxacin 750 mg Tablet
750 mg PO DAILY Qty: 21 0RF
B12 5,000-100 mcg lozenge
1,000 nuno sublingual QID Qty: 30 0RF
Referrals:
Jovana Rhoades DO, Resident [Family Provider, General]
Interventions
Interventions:
*Risk Screen - Suicide Last Done: 11/28/24 17:49
*General Assessment Last Done: 11/28/24 17:49
*Neglect/Abuse Screening Last Done: 11/28/24 17:49
*ED- Fall Risk Assessment Last Done: 11/28/24 19:11
*ED COVID-19 Vaccine History Last Done: 11/28/24 19:11
ED- Cardiac Assessment Last Done: 11/28/24 19:04
Discharge Date and Time
Print Language: NAMIBIAN
[2024-11-28] MEDS: MOTRIN 400 MG PO (18:34)
[2024-11-28] MEDS: NSS 1000 IV ×2 (18:34→21:28)
[2024-11-28 18:50] LABS: ALT (SGPT) 24 U/L (0-50); AST (SGOT) 22 U/L (17-59); Albumin 3.9 g/dl (3.5-5.0); Alkaline Phosphatase 96 U/L (38-126); Blood Urea Nitrogen 12 mg/dl (9-20); Calcium 9.1 mg/dl (8.4-10.2); Carbon Dioxide 26 mmol/L (22-30); Chloride 102 mmol/L (98-107); Estimated Creatinine Clearance 102 ml/min; Glucose 130 mg/dl (70-99); Potassium 4.3 mmol/L (3.5-5.1); Sodium 135 mmol/L (135-145); Total Protein 7.0 g/dl (6.3-8.2); eGFR > 60.00
[2024-11-28 19:00] LABS: Troponin I < 0.012 ng/ml
--- NOTE | 2024-11-28 21:24 | HPS.HSE ---
Family Physician
-
Family Physician: Jovana Rhoades DO, Resident
Chief Complaint
-
chest pain and fever
History of Present Illness
Patient is a 63-year-old male with past medical history significant for hypertension, hypercholesterolemia, hypothyroidism, Hx testicular cancer and Hx Prostate Cancer who presented to [facility] ED for evaluation of fever and chest pain. Patient with
recent prolonged hospitalization 11/06/24 - 11/13/24 for diagnosed right psoas abscess which they were not able to drain ultimately opted to treat with antibiotics for prolonged course�plan was for 3-week course of levofloxacin and metronidazole.
Patient reports this morning he had chest pain and noticed increased pain with inspiration. He then developed a fever this afternoon following CT scan for evaluation of psoas abscess. He denies any chills, cough, shortness of breath, nausea,
vomting, constipation, diarrhea or urinary symptoms.
Medical History
Past Medical History
Past Medical History: Reports Hypercholesterolemia and Other
Additional Past Medical History:
hypertension
hypercholesterolemia
hypothyroidism
Hx Prostate Cancer
Hx testicular cancer
Past Surgical History: Reports Other
Additional Past Surgical History:
prostatectomy 04/2024
right orchiectomy
Social History
Tobacco: Non-smoker
Alcohol: Occasional
Drug: None
Personal:
Living: With Family
Employment: Employed
Family History
Family History: Not pertinent
Allergies / Home Medications
Allergies reflects when Allergies were last updated in [facility].
Home Medications with original date entered in [facility]
Allergy/Medication List:
Allergies
Allergy/AdvReac Type Severity Reaction Status Date / Time
No Known Allergies Allergy Verified 11/06/24 21:29
Home Medications
amlodipine 5 mg tablet 5 mg PO HS 11/06/24
ibuprofen 200 mg tablet 400 mg PO Q6HPRN PRN mild pain/fever 11/06/24
levothyroxine 50 mcg tablet 50 mcg PO DAILY 11/06/24
lisinopril 10 mg tablet 10 mg PO HS 11/06/24
tadalafil 5 mg tablet 5 mg PO QPM 11/06/24
levofloxacin 750 mg tablet 750 mg PO DAILY Infection #21 tabs 11/13/24
metronidazole 500 mg tablet 500 mg PO BID Infection #42 tabs 11/13/24
Lactobac no.2-Bifidobac no.1-S. thermo 112.5 billion cell capsule (Visbiome) 1 cap PO DAILY 11/28/24
cyanocobalamin (vitamin B-12) 1,000 mcg sublingual tablet 2,000 mcg sublingual QID 11/28/24
Review of Systems
-
History Source: Patient
Constitutional: Reports Fever
EENT: Reports No Symptoms
Respiratory: Reports Trouble Breathing (pain with inspiration )
Cardiac: Reports Chest Pain
Abdomen/GI: Reports No Symptoms
: Reports No Symptoms
Musculoskeletal: Reports No Symptoms
Skin: Reports No Symptoms
Neurological: Reports No Symptoms
Endocrine: Reports No Symptoms
Hematologic/Lymphatic: Reports No Symptoms
Psych: Reports No Symptoms
Physical Exam
Vital Signs
Vital Signs
Temp Pulse Resp BP Pulse Ox
99.6 F 112 20 143/88 93
11/28/24 20:43 11/28/24 20:43 11/28/24 20:43 11/28/24 20:43 11/28/24 20:43
Physical Exam
General: Well Developed, Well Nourished and No Apparent Distress
HEENT: NormoCephalic, Moist mucous membranes and Atraumatic
Respiratory: Clear and Non Labored Respirations
Cardiac: S1/S2, Regular Rhythm and Tachycardia; No Murmur, Rub or Gallop
GI: Soft, Non Tender, Non Distended and Normal Bowel Sounds; No Organomegaly
Rectal: Deferred by Provider
Musculoskeletal: No Clubbing, No Cyanosis and No Edema
Skin: Warm and IV/Catheter Site
Neuro: Awake, AO x 3 and Nonfocal/grossly intact
Psych: Calm and Intact Judgment/Insight
Laboratory Results
-
11/28/24 18:16
11/28/24 18:16
Laboratory Results
Lactic Acid Cancelled 11/28/24 22:00
Total Bilirubin 0.6 mg/dl (0.2-1.3) 11/28/24 18:16
AST 22 U/L (17-59) 11/28/24 18:16
ALT 24 U/L (0-50) 11/28/24 18:16
Alkaline Phosphatase 96 U/L (38-126) 11/28/24 18:16
Troponin I < 0.012 ng/ml 11/28/24 18:16
Data Reviewed
-
CT Scan: Report Reviewed by me (Chest: 1. No evidence of central pulmonary embolism. 2. There is a small/moderate pericardial effusion with mild pericardial thickening and enhancement which likely represents acute pericarditis. 3. Trace bilateral
pleural effusions with bibasilar atelectasis.)
Medical Tests (Nuc Med, Echo, EKG etc): Report Reviewed by me (EKG: SINUS TACHYCARDIA)
Lab Data: Labs Reviewed by me (WBC 11.2, )
Impression/Plan
-
IMPRESSION/PLAN:
#chest pain likely 2/2 acute pericarditis
WBC 11.2
Abd/Pel CT: NEW SMALL TO MODERATE PERICARDIAL EFFUSION.
Marked decrease in size/volume of abnormal fluid collection involving the right psoas region and right pelvic sidewall, as detailed above.
Chest CT: 1. No evidence of central pulmonary embolism.
2. There is a small/moderate pericardial effusion with mild pericardial thickening and enhancement which likely represents acute pericarditis.
3. Trace bilateral pleural effusions with bibasilar atelectasis.
EKG: SINUS TACHYCARDIA
- Admit to telemetry
- Consult Cardiology
- ECHO in AM
- trend troponin
- Colchicine 0.6mg BID
- Ibuprofen 800mg TID
#sepsis
#right psoas abscess
Blood Cx: pending
- continue levofloxacin and metronidazole
#hypertension
- continue amlodipine and lisinopril
#hypothyroidism
- continue levothyroxine
#Hx Prostate Cancer
- continue tadalafil
#hypercholesterolemia
#Hx testicular cancer
Code status: full code
DVT Prophylaxis: lovenox sq
[2024-11-28] MEDS: COLCHICINE 0.6 MG PO (21:28)
[2024-11-28 21:50] LABS: Troponin I < 0.012 ng/ml
--- NOTE | 2024-11-28 22:22 | W.PN.UPDATE ---
Update Note
Progress Note Update
This is an addendum to H&P written by Yasmeen Proctor on 11/28/2024. �Patient seen and examined independently with BENDING [employer]LL [employer].
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
Patient was recently admitted from 11/06 to 11/13 for persistent fever. �Patient was treated for pneumonia with vancomycin/cefepime. �He was seen by ID. �Parasite panel was negative. �He had echocardiogram which showed no notable abnormalities. �He
had CT scan of abdomen pelvis which showed rim-enhancing fluid collection in the right external iliac chain possibly abscess formation in the psoas muscle and adjacent necrotic lymphadenopathy which was thought to be the source of sepsis. �Patient
was seen by IR and general surgery but collection was unable to be drained by IR. �General surgery did not recommend any surgical management.
Vital signs show tachycardia.
Labs show leukocytosis. �Troponin negative. �CT chest abdomen pelvis shows new small to moderate pericardial effusion with mild pericardial thickening, improvement in the fluid collection of the right psoas region.
Patient with likely acute pericarditis likely viral. �Trend troponins. �IV fluids given. �Colchicine and ibuprofen started. �Check echocardiogram. �Cardiology consulted. �Check blood cultures.
[2024-11-28 22:57] LABS: Urine Character Clear (Clear)
[2024-11-28 23:11] LABS: Urine White Cell 0-2 /HPF (0-5)
[2024-11-29 00:30] VITALS: BP 124/78; BMI 32.0
[2024-11-29] MEDS: NORVASC 5 MG PO (00:43)
[2024-11-29] MEDS: ZESTRIL 10 MG PO (00:43)
[2024-11-29 01:41] LABS: Troponin I < 0.012 ng/ml
[2024-11-29 03:33] VITALS: BP 128/72
[2024-11-29] MEDS: SYNTHROID 50 MCG PO (05:59)
[2024-11-29 07:13] VITALS: BP 148/90
[2024-11-29 08:03] LABS: Hematocrit 33.5 % (39.0-52.0); Hemoglobin 10.7 g/dL (13.0-18.0); Mean Corp Hgb Conc. 31.9 g/dL (33.0-37.0); Mean Corpuscular Volume 86.8 fL (80.0-94.0); Platelet Count 227 10^3/uL (130-400); Red Cell Dist. Width 14.5 % (11.5-14.5)
[2024-11-29 08:31] LABS: Blood Urea Nitrogen 10 mg/dl (9-20); Calcium 8.3 mg/dl (8.4-10.2); Carbon Dioxide 25 mmol/L (22-30); Chloride 108 mmol/L (98-107); Estimated Creatinine Clearance 116 ml/min; Glucose 103 mg/dl (70-99); Potassium 4.2 mmol/L (3.5-5.1); Sodium 136 mmol/L (135-145); eGFR > 60.00
[2024-11-29] MEDS: LEVAQUIN 750 MG PO (08:32)
[2024-11-29] MEDS: FLAGYL 500 MG PO (08:33)
[2024-11-29] MEDS: COLCHICINE 0.6 MG PO (08:34)
[2024-11-29] MEDS: MOTRIN 800 MG PO ×2 (08:34→16:14)
--- NOTE | 2024-11-29 09:34 | CON.CAR ---
Addendum entered and electronically signed by Caridad Partida MD 11/29/24 14:08:
I saw and examined the patient.
The Plant Biology Professor's note was reviewed and I agree with the note.
Comment: Exam as noted. No clear rub. Patient is currently feeling better. Spoke at great length to the patient at the bedside. Also spoke with primary service at the bedside.
He presented with low-grade fever and chest discomfort. Troponins negative. Positional chest pain most consistent with pericarditis. Risk factors include recent viral syndrome (influenza). He is also being treated for right psoas abscess and
continues to improve.EKG negative for abnormality. Inflammatory markers elevated but better than last admission. Clinically he appears nontoxic.
Echocardiogram reviewed and consistent with small pericardial effusion without hemodynamic evidence of compromise. Thickened pericardium. I did compare [id number] with prior echocardiogram 11/08/2024 and pericardial effusion was not present at
that time.
- Ibuprofen 800 mg 3 times daily x 10 days with gastroprotection
- Colchicine 0.6 mg as tolerated twice daily x 3 months (risk of loose stools discussed with patient)
- Call if recurrent symptoms
- Pending course will then determine serial testing and visits. Discussed at great length with patient.
-Continue treatment of other underlying issues per primary service.
- Echocardiogram scheduled at [facility] in [place] 12/10/2024 at 9:20 AM.
Follow-up in our office will also be arranged.
Original Note:
Consultation
Consultation Request
Date/Time Consultation Performed: 11/29/24
Requesting Provider: Dr. Figueroa
Performing Provider: Shameka Alfonso PA-C for Dr. Caridad Partida
Reason for Consultation: CP, pericarditis
Medical History
-
Chief Complaint: CP, fever
History of Present Illness:
Patient is a 63-year-old male with past medical history of hypertension, hypothyroidism, prostate cancer status post prostatectomy who had the flu in early October 2024. He was then admitted to [facility] 11/06 - 11/13/2024 for pneumonia, and was also found
to have a right psoas abscess and was treated with several weeks of antibiotics. As an outpatient he remains on Levaquin and Flagyl. He reports then 11/28 he noted left-sided chest discomfort and some left shoulder pain, particularly with
movement/positional change and then developed recurrence of fever. He had undergone outpatient CT scan for reevaluation of psoas abscess which showed marked decrease in the size of the abnormal fluid collection, but did show a new small to moderate
pericardial effusion. He then underwent chest CT in the ER which was negative for PE however showed evidence again of pericardial effusion and findings suggestive of acute pericarditis. Troponins remained serially negative. Cardiology consulted
for evaluation. He denies additional personal or family history of rheumatologic disease.
PMH:
Admission to [facility] 10/2024 for flu, pneumonia, right psoas abscess
Hypertension
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
Prostate cancer status post prostatectomy
Past Medical History
Past Medical History: Other (in HPI)
Social History
Tobacco: Non-Smoker
Alcohol: None
Personal:
Living: With Family
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
Family History
Family History: Cancer
Allergies / Home Medications
Allergy/AdvReac Type Severity Reaction Status Date / Time
No Known Allergies Allergy Verified 11/06/24 21:29
�Medication �Instructions �Recorded �Confirmed �Type
amlodipine 5 mg tablet 5 mg PO HS Blood Pressure 11/06/24 11/28/24 History
ibuprofen 200 mg tablet 400 mg PO Q6HPRN PRN mild 11/06/24 11/28/24 History
pain/fever
levothyroxine 50 mcg tablet 50 mcg PO DAILY Thyroid 11/06/24 11/28/24 History
lisinopril 10 mg tablet 10 mg PO HS Blood Pressure 11/06/24 11/28/24 History
tadalafil 5 mg tablet 5 mg PO QPM Urinary Issue 11/06/24 11/28/24 History
levofloxacin 750 mg tablet 750 mg PO DAILY Infection #21 tabs 11/13/24 11/28/24 Rx
metronidazole 500 mg tablet 500 mg PO BID Infection #42 tabs 11/13/24 11/28/24 Rx
Lactobac no.2-Bifidobac no.1-S. 1 cap PO DAILY Gastrointestinal 11/28/24 11/28/24 History
thermo 112.5 billion cell capsule Issue
(Visbiome)
cyanocobalamin (vitamin B-12) 2,000 mcg sublingual QID Supplement 11/28/24 11/28/24 History
1,000 mcg sublingual tablet
Review of Systems
-
History Source: Patient
All other systems: Negative unless noted
Physical Exam
Vital Signs
Temp Pulse Resp BP Pulse Ox
98.4 F 98 18 148/90 94
11/29/24 07:13 11/29/24 07:13 11/29/24 07:13 11/29/24 07:13 11/29/24 07:13
Lab Results
11/29/24 06:36
11/29/24 06:36
Troponin I Cancelled 11/29/24 06:12
Physical Exam
General: No Apparent Distress and Comfortable
HEENT: Normocephalic, Anicteric and Moist Mucous Membranes
Respiratory: Clear and Non Labored Respirations
Cardiac: S1/S2, Regular Rhythm and Other (tachy); Negative Rub
GI: Soft, Non Tender, Non Distended and Normal Bowel Sounds
Musculoskeletal: No Clubbing, No Cyanosis and No Edema
Skin: Warm and Dry
Neuro: AO x 3
Impression / Plan
-
Primary Tank Cooper: none prior to admission
Assessment:
CP
Recurrent fevers
Small to mod pericardial effusion by chest CT, concern for acute pericarditis
Serially negative troponins
Anemia
Admission to [facility] 10/2024 for flu, pneumonia, right psoas abscess
Hypertension
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
Prostate cancer status post prostatectomy
ECHO 11/29/24: pending
Plan:
- Patient presents with chest pain and recurrent fever after admission last month for flu, pneumonia and right psoas abscess.
- Concern by chest CT for acute pericarditis with a small to moderate pericardial effusion
- Troponins serially negative
- EKG sinus rhythm. review of tele sinus tach
- Check ESR/CRP. Had RF/TREMAYNE on 11/08, both negative
- Echo pending
- Right psoas abscess decreased compared to prior by CT abdomen and pelvis completed as outpatient 11/28. Continue antibiotics per ID
- Repeat blood cultures pending
- Continue Motrin and colchicine as ordered. Reviewed possible side effects of these medicines with patient today. added Protonix and probiotic
- Follow hemoglobin, 10.7 on 11/29
Data Reviewed
-
EKG: Tracing Personally Visualized and interpreted
CT Scan: Report Reviewed by me
Labs: Labs Reviewed by me
Old Records: Reviewed
[2024-11-29] MEDS: PROTONIX 40 MG PO (09:36)
--- NOTE | 2024-11-29 10:07 | W.PN.HOSP.TC ---
Addendum entered and electronically signed by Tyrese Figueroa MD 11/29/24 21:46:
Attending Addendum:
I saw and evaluated the patient. I reviewed the resident�s note and agree with findings and plan as documented in the resident�s note. Sub: no further CP wants to go home. Seen with cards. no fever chills. Full 12 point ROS reviewed and negative
except as documented Exam: Vitals reviewed in chart GEN-nad heart no rub lungs clear abd soft LE no edema
#Acute Pericardial effusion
#Acute Pericarditis
- ECHO: LVEF 55-60%, small pericardial effusion, pericardial thickening
- Colchicine 0.6mg BID for 3 months
- Ibuprofen 800mg TID for 10 days with PPI
-Repeat CRP/ESR as OP
-Repeat Echo in 12/10/2024 as outpatient
-d/w cards stable for dc home
# h/o recent right psoas abscess
-ct scan shows that abscess is improving
-continue levofloxacin and metronidazole (end: 12/04/2024)
#Hypothyroidism
-continue levothyroxine
#Anemia
Hgb 12.4--> 10.7
asymptomatic
#Prediabetes
Hba1c 6.3
-lifestyle and diet modification
DVT Prophylaxis: Lovenox
Full code
Dispo DC home
Time spent coordinating care, DC planning, review of DC plan of care with resident, transition of care, review of records, med rec/scripts sent electronically, consults, notes, d/w consultants, nursing, cards and CM� 31 mins >50% of this time was
devoted to counseling and coordination of care
Original Note:
Today's Communication/Plan
-
Continue antibiotics
per cardiology: take colchicine, motrin with gastroprotection as instructed.
Repeat ECHO in 2 weeks
Repeat CRP/ESR, CBC in 1 week
PCP and Cardiology follow up
Assessment / Plan
Assessment / Plan
63-year-old male with past medical history hypothyroidism, hypercholesterolemia, essential hypertension, history of testicular cancer s/p right orchiectomy and history of Prostate Cancer s/p prostatectomy
presented to Emergency department for worsening chest pain, accompanied by fever.
#Acute Pericardial effusion
#Acute Pericarditis
CT abdomen/pelvis:
NEW SMALL TO MODERATE PERICARDIAL EFFUSION.
Marked decrease in size/volume of abnormal fluid collection involving the right psoas region and right pelvic sidewall
Chest CT:� (-) central pulmonary embolism, small/moderate pericardial effusion with mild pericardial thickening and enhancement, likely acute pericarditis.
ECG: Sinus Tachycardia
ECHO: LVEF 55-60%, small pericardial effusion, pericardial thickening
Troponin 0.012-->0.012
WBC: 10.7
-past history of sepsis, right psoas abscess
- Colchicine 0.6mg BID for 3 months
- Ibuprofen 800mg TID for 10 days with PPI
-no strenuous activity
-cardiology following
-OT/PT following
-Repeat CRP/ESR in 1 week
-Repeat Echo in 12/10/2024 as outpatient
#right psoas abscess
-continue levofloxacin and metronidazole (end: 12/04/2024)
-blood culture pending
#Hypothyroidism
-continue levothyroxine
#Anemia
Hgb 12.4--> 10.7
asymptomatic
likely due rehydration therapy
#Prediabetes
Hba1c 6.3
-lifestyle and diet modification
DVT Prophylaxis: Lovenox
Full code
Anticipated Discharge: Today
Subjective/Interval History
-
Date of Service: November 29, 2024
chest discomfort 1 p/s, no fever, episode of severe chest pain, SOB or palpitations since since admission. Reports being more fatigue as of late.
Objective Data
-
Labs:
Laboratory Results
11/29/24
06:36
WBC 9.1
Hgb 10.7 L
Hct 33.5 L
Plt Count 227
Sodium 136
Potassium 4.2
Chloride 108 H
Carbon Dioxide 25
BUN 10
Creatinine 0.8
Glucose 103 H
Calcium 8.3 L
Vital Signs:
Vital Signs
Temp Pulse Resp BP Pulse Ox
98.4 F 98 18 148/90 94
11/29/24 07:13 11/29/24 07:13 11/29/24 07:13 11/29/24 07:13 11/29/24 07:13
I&O
11/28/24 11/29/24 11/30/24
06:59 06:59 06:59
Intake Total 480 / 480
Output Total 775 / 775
Balance -295 / -295
Review of Systems
-
Constitutional: Reports Weight Loss (intentional) and Other (Denies fever, chills, weakness)
EENT: Reports No Symptoms Reported
Respiratory: Reports Other (Denies trouble breathing, and cough)
Cardiac: Reports Chest Pain (1 P/S) and Other (Denies palpitations and syncompe)
Abdomen/GI: Reports Other (Denies abdominal pain, nausea)
Genitourinary: Reports Incontinence
Neuro: Reports Other (Denies lightheadedness)
Physical Exam
-
General: No Apparent Distress, Comfortable and Conversant
HEENT: Normocephalic and Atraumatic
Respiratory: Clear to Auscultation and Non Labored Respirations
Cardiac: Regular Rhythm and S1/S2
GI: Soft, Nontender and Normal Bowel Sounds
Rectal: Deferred by Provider
Musculoskeletal: No Edema
Skin: Warm
Neuro: AO x 3 and No Motor Deficits
Psych: Calm
[2024-11-29 10:15] LABS: Glycohemoglobin (HgbA1c) 6.3 % (4.0-5.6)
[2024-11-29 11:13] VITALS: BP 128/79; PULSE 98; O2SAT 95
[2024-11-29 11:17] VITALS: BP 128/79
--- NOTE | 2024-11-29 11:19 | PTOTSP ---
Pt is able to get OOB and ambulate in hallway without an assistive device and is able to climb steps unassisted. No acute PT needs at this time. PT will sign off.
[2024-11-29 12:01] LABS: C-Reactive Protein 70.50 mg/L (0.0-10.00)
--- NOTE | 2024-11-29 14:18 | PTOTSP ---
pt currently demonstrates ability to complete simple ADLs, functional transfers, ambulation. pt with no concerns regarding returning home. no overt deficits noted, no skilled OT needs identified. will sign off.
[2024-11-29 15:01] VITALS: BP 116/74
--- NOTE | 2024-11-29 15:44 | CM ---
Met with patient at bedside
Pharmacy verified: [facility] @ [address], [place]
Patient lives w/ and 5 adult children; multilevel home; full bath 1st floor; 1 step to enter; 12-13 steps between floors; railing present;
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
DME: CPAP
No SNF utilization history; home health VN w/ [facility] this year
will transport home
Plan: Discharge to home; no needs
--- NOTE | 2024-11-29 18:56 | W.DCSUMMARY ---
Addendum entered and electronically signed by Tyrese Figueroa MD 11/29/24 21:46:
Read, reviewed, and agree. See same day progress note for additional details.
Ari Figueroa MD
Original Note:
Documented by User: Margi Urbano MD, Resident 11/29/24 19:23
Discharge Summary
Discharge Data
Date of Admission: 11/28/24
Date of Discharge: 11/29/24
-
Pending Results: Yes (Blood Culture)
Additional Pending Results:
Discharging Physician : Tyrese Figueroa MD, Margi Urbano MD
Disposition : Home
Primary care physician : Jovana Rhoades DO
Principal Discharge diagnosis : Acute Pericardial Effusion, Acute Pericarditis, Psoas Muscle Abscess, Prediabetes
Chronic Discharge diagnosis : Hypothyroidism
Hospital Course : At the ER, CT scan which was done earlier in the day to follow-up on psoas abscess was reviewed and abscess found to be improved, but incidental mild to moderate pericardial effusion was noted. Dedicated CT of the chest to rule
out PE and to better evaluate the rest of his chest including effusion was sought. Labs reviewed: CBC shows mild leukocytosis, marginal anemia. CMP showed no clinically significant abnormalities. Lactate less than 2. Initial troponin negative. CT
chest shows no PE. No signs of pneumonia. Tylenol and fluids provided.
The following problems were addressed during this admission:
#Chest pain, likely secondary to Acute Pericarditis
#Acute Pericardial effusion
CT abdomen/pelvis:
NEW SMALL TO MODERATE PERICARDIAL EFFUSION.
Marked decrease in size/volume of abnormal fluid collection involving the right psoas region and right pelvic sidewall
Chest CT:� (-) central pulmonary embolism, small/moderate pericardial effusion with mild pericardial thickening and enhancement, likely acute pericarditis.
ECG: Sinus Tachycardia
ECHO: LVEF 55-60%, small pericardial effusion, pericardial thickening
Troponin 0.012-->0.012
WBC: 10.7
- Colchicine 0.6mg BID for 3 months
- Ibuprofen 800mg TID for 10 days with PPI (Pantoprazole Sodium 40mg PO OD)
-no strenuous activity
-cardiology following
-OT/PT following
-Repeat CRP/ESR in 1 week
-Repeat Echo in 12/10/2024 as outpatient
#right psoas abscess
-continue levofloxacin and metronidazole (end: 12/04/2024)
-blood culture taken
#Hypertension
-continue amlodipine and lisinopril
#Hypothyroidism
-continue levothyroxine
#Anemia
Hgb 12.4--> 10.7
asymptomatic
likely due rehydration therapy
#Prediabetes
Hba1c 6.3
-lifestyle and diet modification
Important imaging findings :
Abdomen/Pelvis CT (11/28/2024):
FINDINGS:
CHEST:There is a new small to moderate pericardial effusion. Bilateral lower lobe subsegmental atelectasis has improved in comparison to recent prior CT.
ABDOMEN and PELVIS:There is no focal intrinsic abnormality of the liver, gallbladder, spleen, pancreas, kidneys or adrenal glands with symmetric renal excretion. The appendix is unremarkable. There is no intestinal obstruction or free air. The
abdominal aorta is normal in caliber with calcific atherosclerotic changes. There is no retroperitoneal lymphadenopathy. Low-attenuation fluid collection involving the right psoas muscle likely contiguous with the right pelvic sidewall seen on prior
study has significantly decreased with right pelvic sidewall component, image 92 series 201 which is contiguous with the right psoas muscle now measures less than 1 cm in greatest dimension as compared to 4.7 cm on prior study and iliacus component
seen on image 81 series 201 also now measures only approximately 1 cm in greatest dimension as compared to 1.9 cm on prior study. There is no new abnormal focal fluid collection. The abdominal aorta is normal in caliber. There is no retroperitoneal
lymphadenopathy. The urinary bladder is incompletely distended and unopacified with at least relative diffuse wall thickening likely due to underdistention. Small predominantly fat only containing left inguinal hernia is again seen.
SKELETON:Stable.
IMPRESSION:
NEW SMALL TO MODERATE PERICARDIAL EFFUSION.
Marked decrease in size/volume of abnormal fluid collection involving the right psoas region and right pelvic sidewall, as detailed above.
Chest CT (11/28/2024): Findings:
Image quality is mildly degraded by motion artifact.
No filling defects in the central pulmonary arteries to suggest pulmonary embolism.
No thoracic aortic aneurysm. The heart is not enlarged. There is a small/moderate pericardial effusion with mild pericardial thickening and enhancement.
The central airways are patent. Trace bilateral pleural effusions with bibasilar atelectasis.
No mediastinal, hilar or axillary lymphadenopathy.
Mild dextro convex curvature of the thoracic spine with multilevel mild degenerative changes
Visualized portion of the upper abdomen: Characterized on dedicated CT abdomen pelvis
IMPRESSION:
1. No evidence of central pulmonary embolism.
2. There is a small/moderate pericardial effusion with mild pericardial thickening and enhancement which likely represents acute pericarditis.
3. Trace bilateral pleural effusions with bibasilar atelectasis.
ECHOCARDIOGRAM (11/29/2024):
PHYSICIAN INTERPRETATION
Left Ventricle:
Normal left ventricular size and function. Left ventricular ejection fraction 55 to 60% by visual assessment.
Right Ventricle:
Right ventricular size and systolic function are within normal limits.
Left Atrium:
Left atrial size is the left atrium is normal in size.
Right Atrium:
Right atrial size is normal.
Aortic Valve:
Trileaflet aortic valve with no evidence of aortic stenosis or regurgitation.
Mitral Valve:
Mitral valve leaflet thickness appears normal.
Tricuspid Valve:
The tricuspid valve opens normally.
Pulmonary Valve:
Not assessed.
Pericardium:
A small pericardial effusion is present globally located around the entire heart. Pericardial thickening noted. Pericardial effusion without hemodynamic evidence of tamponade
Procedure findings :
Discharge Plan
-
Patient Disposition: Home (Routine Discharge)
Discharge Diagnosis/Procedures: Acute Pericardial Effusion, Acute Pericarditis, Psoas Muscle Abscess, Prediabetes
Condition: Fair
Diet: Diabetic, Carb Controlled
Additional Diets: Increase water intake for today to rehydrate!
Activity: No strenuous activity
Driving Restrictions: As prior to admission
Bathing Restrictions: OK to Shower
Others Tests: Repeat CRP, ESR and CBC in 1 week and follow up with pcp.
Referrals:
Valeria Castorena CRNP [Specified Professional Personl, Cardiology] - 12/31/24 8:40 am
Referral Note: You have a follow up visit with Dr. Caridad Partida's MANAGER MOLECULAR, Valeria, at the [place] office. Please call with questions.
Jovana Rhoades DO, Resident [Family Provider, General] - in less than 1 week
Additional Discharge Medication Instructions: You have been arranged for an echo at the [facility] in [place] on 12/10/2024 at 9:15 AM to follow up on the pericardial effusion (fluid around the heart).
Drink Ibuprofen 800mg, by mouth, three times a day for 10 days. End date: 12/09/2024
Drink Pantoprazole 40mg, by mouth, once a day while taking Ibuprofen (mentioned above)
Drink Colchicine 0.6mg as tolerated, by mouth, twice daily for 3 months
Prescriptions:
New
ibuprofen 800 mg Tablet
800 mg PO TID Qty: 30 0RF
pantoprazole 40 mg Tablet,Delayed Release (Dr/Ec)
40 mg PO DAILY Qty: 30 0RF
colchicine 0.6 mg Tablet
0.6 mg PO BID 0 Days Qty: 60 2RF
Continued
amlodipine 5 mg Tablet
5 mg PO HS
levothyroxine 50 mcg Tablet
50 mcg PO DAILY
lisinopril 10 mg Tablet
10 mg PO HS
tadalafil 5 mg Tablet
5 mg PO QPM
metronidazole 500 mg Tablet
500 mg PO BID Qty: 42 0RF
Rx Instructions:
for 21 days starting 11/13/24
levofloxacin 750 mg Tablet
750 mg PO DAILY Qty: 21 0RF
Rx Instructions:
for 21 days starting 11/13/24
cyanocobalamin (vitamin B-12) 1,000 mcg Tablet, Sublingual
2,000 mcg SUBLINGUAL QID
Visbiome 112.5 billion cell Capsule
1 cap PO DAILY
Discontinued
ibuprofen 200 mg Tablet
400 mg PO Q6HPRN PRN (Reason: mild pain/fever)
Discharge Orders:
Discharge Patient (As Directed); Ordered 11/29/24
Ordered By: Margi Urbano
Discharge Date and Time
Discharge Date/Time: 11/29/24 17:45
Print Language: KAZAKH

Documented by User: Tyrese Figueroa MD 11/29/24 21:42
Discharge Summary
Discharge Data
Date of Admission: 11/28/24
Date of Discharge: 11/29/24
Discharge Plan
-
Patient Disposition: Home (Routine Discharge)
Discharge Diagnosis/Procedures: Acute Pericardial Effusion, Acute Pericarditis, Psoas Muscle Abscess, Prediabetes
Condition: Fair
Diet: Diabetic, Carb Controlled
Additional Diets: Increase water intake for today to rehydrate!
Activity: No strenuous activity
Driving Restrictions: As prior to admission
Bathing Restrictions: OK to Shower
Others Tests: Repeat CRP, ESR and CBC in 1 week and follow up with pcp.
Referrals:
Valeria Castorena CRNP [Specified Professional Personl, Cardiology] - 12/31/24 8:40 am
Referral Note: You have a follow up visit with Dr. Caridad Partida's MANAGER MOLECULAR, Valeria, at the [place] office. Please call with questions.
Jovana Rhoades DO, Resident [Family Provider, General] - in less than 1 week
Additional Discharge Medication Instructions: You have been arranged for an echo at the [facility] and [facility] in [place] on 12/10/2024 at 9:15 AM to follow up on the pericardial effusion (fluid around the heart).
Drink Ibuprofen 800mg, by mouth, three times a day for 10 days. End date: 12/09/2024
Drink Pantoprazole 40mg, by mouth, once a day while taking Ibuprofen (mentioned above)
Drink Colchicine 0.6mg as tolerated, by mouth, twice daily for 3 months
Prescriptions:
New
ibuprofen 800 mg Tablet
800 mg PO TID Qty: 30 0RF
pantoprazole 40 mg Tablet,Delayed Release (Dr/Ec)
40 mg PO DAILY Qty: 30 0RF
colchicine 0.6 mg Tablet
0.6 mg PO BID 0 Days Qty: 60 2RF
Continued
amlodipine 5 mg Tablet
5 mg PO HS
levothyroxine 50 mcg Tablet
50 mcg PO DAILY
lisinopril 10 mg Tablet
10 mg PO HS
tadalafil 5 mg Tablet
5 mg PO QPM
metronidazole 500 mg Tablet
500 mg PO BID Qty: 42 0RF
Rx Instructions:
for 21 days starting 11/13/24
levofloxacin 750 mg Tablet
750 mg PO DAILY Qty: 21 0RF
Rx Instructions:
for 21 days starting 11/13/24
cyanocobalamin (vitamin B-12) 1,000 mcg Tablet, Sublingual
2,000 mcg SUBLINGUAL QID
Visbiome 112.5 billion cell Capsule
1 cap PO DAILY
Discontinued
ibuprofen 200 mg Tablet
400 mg PO Q6HPRN PRN (Reason: mild pain/fever)
Discharge Orders:
Discharge Patient (As Directed); Ordered 11/29/24
Ordered By: Margi Urbano
Discharge Date and Time
Discharge Date/Time: 11/29/24 17:45
Print Language: KAZAKH
== END 2024-11-29 17:45 | disposition home or self-care (01) | DRG 314 ==
LOC: 4 EAST ACU 22:44
PROVIDERS: Nurse Practitioner Family; ADMITTING PHYSICIAN Hospitalist; ATTENDING PHYSICIAN Family Medicine; EMERGENCY PHYSICIAN Emergency Medicine; OTHER PHYSICIAN Internal Medicine Cardiovascular Disease
DX: I30.9 Acute pericarditis, unspecified (principal); K68.12 Psoas muscle abscess; J98.11 Atelectasis; R73.03 Prediabetes; E03.9 Hypothyroidism, unspecified; I10 Essential (primary) hypertension; D64.9 Anemia, unspecified; Z90.79 Acquired absence of other genital organ(s); Z85.46 Personal history of malignant neoplasm of prostate; Z85.47 Personal history of malignant neoplasm of testis; Z79.890 Hormone replacement therapy; E78.00 Pure hypercholesterolemia, unspecified; K40.90 Unilateral inguinal hernia, without obstruction or gangrene, not specified as recurrent
CPT/HCPCS: 71275; 74177; 80048; 80053; 81003; 81015; 83036; 83605; 84484; 85025; 85027; 85652; 86140; 87040; 93005; 93308; 93321; 93325; 96360; 96361; 97162; 97166; 99285; 99406; Q9967

== ENCOUNTER → 2024-12-10 09:12 | Outpatient (REF) | payer BC, SELFPAY | LOC: HWRCS 09:12 | PROVIDERS: ATTENDING PHYSICIAN Internal Medicine Cardiovascular Disease | DX: I30.9 Acute pericarditis, unspecified (principal); I31.39 Other pericardial effusion (noninflammatory) | CPT/HCPCS: 93308 ==

== ENCOUNTER 2025-02-06 06:30 | Day surgery (SDC) | payer BC, SELFPAY | END 2025-02-06 11:09 | disposition home or self-care (01) | LOC: GI 06:30 | PROVIDERS: ATTENDING PHYSICIAN Internal Medicine Gastroenterology | DX: Z12.11 Encounter for screening for malignant neoplasm of colon (principal); R19.5 Other fecal abnormalities; K57.30 Diverticulosis of large intestine without perforation or abscess without bleeding; K64.8 Other hemorrhoids; K63.3 Ulcer of intestine; K52.9 Noninfective gastroenteritis and colitis, unspecified; D12.8 Benign neoplasm of rectum; D12.5 Benign neoplasm of sigmoid colon; Z80.0 Family history of malignant neoplasm of digestive organs | CPT/HCPCS: 45385; 45380; 88305 ==